=== PATIENT | female | born 1965 | race Caucasian/White ===

== ENCOUNTER 2018-07-27 13:58 | Outpatient (REF) | payer BC, SELFPAY ==
[2018-07-27 21:53] LABS: ALT 22 U/L (12-78); AST 17 U/L (15-37); Albumin 3.3 g/dL (3.4-5.0); Alkaline Phosphatase 99 U/L (46-116); Anion Gap 6.4 mmol/L (3-11); BUN 12 mg/dL (7-18); Bilirubin, Total 0.3 mg/dL (0.2-1.0); CO2 28.6 mmol/L (21.0-32.0); CREATININE 1.03 mg/dL (0.55-1.02); Calcium 8.8 mg/dL (8.5-10.1); Chloride 106 mmol/L (98-107); Cholesterol 201 mg/dL (50-200); Estimated GFR 55.84 (mL/min/1.73m2); Glucose 98 mg/dL (70-100); HDL Cholesterol 37 mg/dL (40-60); LDL CHOLESTEROL 150 mg/dL (<100); Potassium 4.2 mmol/L (3.5-5.1); Sodium 141 mmol/L (136-145); Total Protein 7.3 g/dL (6.4-8.2); Triglyceride 148 mg/dL (30-150)
[2018-07-27 22:09] LABS: COMMENT (LAB VIEW ONLY) 307.81 mg/dL; Microalb ug/mg Crea 5.9 ug/mg Cr
== END 2018-07-27 14:18 ==
LOC: NCHCN 13:58
PROVIDERS: Visit Provider Registered Nurse
DX: Z00.00 Encounter for general adult medical examination without abnormal findings (principal); I10 Essential (primary) hypertension; E66.01 Morbid (severe) obesity due to excess calories
CPT/HCPCS: 80053; 80061; 83721; 82043; 82570; 87086

== ENCOUNTER 2020-02-19 12:13 | Outpatient (REF) | payer BC, SELFPAY ==
[2020-02-19 20:08] LABS: HCT 40.2 % (36.0-46.0); HGB 12.7 g/dL (12.0-15.5); Mean Corp. HGB Concentration 31.6 g/dL (32.0-36.0); Mean Corpuscular Hemoglobin 24.9 pg (27.0-33.0); Mean Corpuscular Volume 78.8 fL (80-95); Mean Platelet Volume 11.5 fL (8.0-11.0); Platelet Count 384 x1000/uL (130-400); RBC Distribution Width 18.4 % (11.7-14.6); White Blood Cell Count 8.24 k/cumm (4.4-10.8)
[2020-02-19 20:16] LABS: ALT 30 U/L (14-59); AST 21 U/L (15-37); Albumin 3.8 g/dL (3.4-5.0); Alkaline Phosphatase 107 U/L (46-116); Anion Gap 9.2 mmol/L (3-11); BUN 17 mg/dL (7-18); Bilirubin, Total 0.4 mg/dL (0.2-1.0); CO2 28.8 mmol/L (21.0-32.0); CREATININE 0.94 mg/dL (0.55-1.02); Calcium 9.7 mg/dL (8.5-10.1); Calculated LDL 175 mg/dL (<100); Chloride 101 mmol/L (98-107); Cholesterol 258 mg/dL (<200); Glucose 107 mg/dL (74-106); HDL Cholesterol 42 mg/dL (40-60); Potassium 5.1 mmol/L (3.5-5.1); Sodium 139 mmol/L (136-145); TSH 4.74 uIU/mL (0.36-3.74); Total Protein 8.3 g/dL (6.4-8.2); Triglyceride 205 mg/dL (<150)
[2020-02-21 04:57] LABS: Vitamin D 25 Total 11.1 ng/ml (30-100)
== END 2020-02-19 12:33 ==
LOC: NCHCN 12:13
PROVIDERS: Visit Provider Registered Nurse
DX: Z00.00 Encounter for general adult medical examination without abnormal findings (principal); E78.5 Hyperlipidemia, unspecified; R53.83 Other fatigue; D50.9 Iron deficiency anemia, unspecified; E66.01 Morbid (severe) obesity due to excess calories; B35.3 Tinea pedis
CPT/HCPCS: 80053; 80061; 82306; 85027; 84443

== ENCOUNTER 2020-03-21 12:59 | Outpatient (REF) | payer BC, SELFPAY ==
[2020-03-21 21:07] LABS: TSH (W/Ref FT4) 2.58 uIU/mL (0.36-3.74)
[2020-03-24 06:30] LABS: Vitamin D 25 Total 21.4 ng/ml (30-100)
== END 2020-03-21 13:19 ==
LOC: NCHCN 12:59
PROVIDERS: Visit Provider Registered Nurse
DX: R94.6 Abnormal results of thyroid function studies (principal); E55.9 Vitamin D deficiency, unspecified
CPT/HCPCS: 82306; 84443

== ENCOUNTER 2020-04-21 10:45 | Outpatient (REF) | payer BC, SELFPAY ==
[2020-04-21 22:00] LABS: Vitamin D 25 Total 21.3 ng/ml (30-100)
== END 2020-04-21 11:05 ==
LOC: NCHCN 10:45
PROVIDERS: Visit Provider Registered Nurse
DX: E55.9 Vitamin D deficiency, unspecified (principal)
CPT/HCPCS: 82306

== ENCOUNTER 2020-06-11 21:46 | Outpatient (REF) | payer BC, SELFPAY ==
[2020-06-11 20:49] LABS: HCT 41.5 % (36.0-46.0); HGB 13.1 g/dL (11.2-15.7); MCH 25.6 pg (27.0-33.0); MCHC 31.6 % (32.0-36.0); MCV 81.2 fL (80-95); MPV 11.3 fL (8.0-11.0); Platelet Count 335 10^3/uL (130-400); RBC 5.11 10^6/uL (3.93-5.22); RDW 18.6 % (11.7-14.6); WBC 9.88 10^3/uL (4.4-10.8)
[2020-06-11 21:14] LABS: ALT 30 U/L (14-59); AST 18 U/L (15-37); Albumin 3.4 g/dL (3.4-5.0); Alkaline Phosphatase 109 U/L (46-116); Anion Gap 8.5 mmol/L (3-11); BUN 17 mg/dL (7-18); Bilirubin, Total 0.3 mg/dL (0.2-1.0); CO2 28.5 mmol/L (21.0-32.0); CREATININE 0.85 mg/dL (0.55-1.02); Calcium 9.8 mg/dL (8.5-10.1); Chloride 105 mmol/L (98-107); Glucose 97 mg/dL (74-106); Potassium 4.3 mmol/L (3.5-5.1); Sodium 142 mmol/L (136-145); TSH 3.32 uIU/mL (0.36-3.74); Total Protein 7.4 g/dL (6.4-8.2)
[2020-06-11 21:17] LABS: Hemoglobin A1C 6.4 % (3.8-5.6)
== END 2020-06-11 22:06 ==
LOC: NCHCN 21:46
PROVIDERS: Visit Provider Registered Nurse
DX: R55 Syncope and collapse (principal)
CPT/HCPCS: 80053; 85027; 83036; 83735; 84443

== ENCOUNTER 2020-08-01 14:45 | Outpatient (REF) | payer BC, SELFPAY ==
[2020-08-01 21:30] LABS: HCT 45.9 % (36.0-46.0); MCH 25.5 pg (27.0-33.0); MCHC 30.5 % (32.0-36.0); MCV 83.5 fL (80-95); MPV 12.4 fL (8.0-11.0); Platelet Count 310 10^3/uL (130-400); RDW 17.2 % (11.7-14.6); RDW-SD 51.9 fL; WBC 8.97 10^3/uL (4.4-10.8)
[2020-08-01 21:49] LABS: Iron 40 ug/dL (50-170); Total Iron Binding Capacity 455 ug/dL (250-450); Transferrin Sat 9 % (15-50)
[2020-08-01 21:58] LABS: Anion Gap 6.9 mmol/L (3-11); BUN 14 mg/dL (7-18); CO2 29.1 mmol/L (21.0-32.0); CREATININE 0.97 mg/dL (0.55-1.02); Calcium 9.5 mg/dL (8.5-10.1); Calculated LDL 68 mg/dL (<100); Chloride 105 mmol/L (98-107); Cholesterol 146 mg/dL (<200); Ferritin 10 ng/mL (8-252); Glucose 99 mg/dL (74-106); HDL Cholesterol 35 mg/dL (40-60); Potassium 3.9 mmol/L (3.5-5.1); Sodium 141 mmol/L (136-145); Triglyceride 217 mg/dL (<150)
== END 2020-08-01 15:05 ==
LOC: NCHCN 14:45
PROVIDERS: Visit Provider Registered Nurse
DX: E78.5 Hyperlipidemia, unspecified (principal); D50.9 Iron deficiency anemia, unspecified; R60.0 Localized edema
CPT/HCPCS: 80048; 80061; 85027; 82728; 83540; 83550

== ENCOUNTER 2020-08-08 13:11 | Outpatient (REF) | payer BC, SELFPAY ==
[2020-08-12 22:14] LABS: Patient Race White; SARS-CoV-2 RNA Undetected (Undetected); SARS-CoV-2 Specimen Source Nasopharynx
== END 2020-08-08 13:31 ==
LOC: NCHCN 13:11
PROVIDERS: Visit Provider Registered Nurse
DX: Z11.59 Encounter for screening for other viral diseases (principal)
CPT/HCPCS: U0003

== ENCOUNTER 2021-05-07 11:46 | Outpatient (REF) | payer BC, SELFPAY ==
--- NOTE | 2021-05-07 10:30 | PAPFT_PTH ---
PATIENT: Christal Larkin LOC: [facility] U#:[id number] AGE/SX: 55/F ROOM: RE05/07/[address]: Ila Dc : 1965 BED: DIS: 05/07/2021 SPEC #: [id number] RECD: 05/07/21 13:01 STATUS: CHINO BARAJAS #: [id number] GUERO: 05/07/21 10:[address]: Ila Dc DEPT: [facility] Cytology RECD BY: Shanon Shen ENTERED: 05/07/21 13:01 SP TYPE: PAPFT OTHR DR: Maximus Sánchez Tissues: 1 - CX/ENDOCX FOR PAP SMEARS Procedures: PAP THIN PREP/UVM Screening HPV DNA PROBE Comments: [id number]
== END 2021-05-07 11:47 | disposition home or self-care (01) ==
LOC: NCHCN 11:46
PROVIDERS: Visit Provider Registered Nurse
DX: Z00.00 Encounter for general adult medical examination without abnormal findings (principal); Z12.4 Encounter for screening for malignant neoplasm of cervix
CPT/HCPCS: 88142; 87480; 87510; 87624; 87660

== ENCOUNTER 2021-05-28 16:15 | Outpatient (REF) | payer BC, SELFPAY ==
[2021-05-28 21:20] LABS: ALT 29 U/L (14-59); AST 17 U/L (15-37); Albumin 3.3 g/dL (3.4-5.0); Alkaline Phosphatase 102 U/L (46-116); Anion Gap 7.6 mmol/L (3-11); BUN 20 mg/dL (7-18); Bilirubin, Total 0.3 mg/dL (0.2-1.0); CO2 28.4 mmol/L (21.0-32.0); CREATININE 1.1 mg/dL (0.55-1.02); Calcium 9.3 mg/dL (8.5-10.1); Chloride 103 mmol/L (98-107); Glucose 194 mg/dL (74-106); Potassium 3.6 mmol/L (3.5-5.1); Sodium 139 mmol/L (136-145); Total Protein 7.3 g/dL (6.4-8.2)
== END 2021-05-28 16:16 | disposition home or self-care (01) ==
LOC: NCHCN 16:15
PROVIDERS: Visit Provider Registered Nurse
DX: Z00.00 Encounter for general adult medical examination without abnormal findings (principal); I10 Essential (primary) hypertension; E78.5 Hyperlipidemia, unspecified; R73.03 Prediabetes
CPT/HCPCS: 80053

== ENCOUNTER 2021-08-14 16:50 | Outpatient (REF) | payer BC, SELFPAY ==
[2021-08-16 14:05] LABS: COVID-19 RT-PCR UVMMC Result Negative (Negative)
== END 2021-08-14 16:51 | disposition home or self-care (01) ==
LOC: NCHCN 16:50
PROVIDERS: Visit Provider Registered Nurse
DX: Z20.822 Contact with and (suspected) exposure to COVID-19 (principal); R06.02 Shortness of breath; R19.7 Diarrhea, unspecified
CPT/HCPCS: U0003

== ENCOUNTER 2022-03-16 18:28 | Outpatient (REF) | payer BC, SELFPAY ==
[2022-03-17 01:43] LABS: COVID-19 RT-PCR UVMMC Result Negative (Negative)
== END 2022-03-16 18:29 | disposition home or self-care (01) ==
LOC: NCHCN 18:28
PROVIDERS: Visit Provider Nurse Practitioner Family
DX: Z20.822 Contact with and (suspected) exposure to COVID-19 (principal); J06.9 Acute upper respiratory infection, unspecified
CPT/HCPCS: U0003

== ENCOUNTER 2022-10-20 16:18 | Outpatient (REF) | payer BC, SELFPAY ==
[2022-10-20 21:24] LABS: Anion Gap 5.3 mmol/L (3-11); BUN 10 mg/dL (7-18); CO2 31.7 mmol/L (21.0-32.0); CREATININE 0.8 mg/dL (0.55-1.02); Calcium 9.7 mg/dL (8.5-10.1); Chloride 103 mmol/L (98-107); Estimated GFR 84.82 (mL/min/1.73m2); Glucose 99 mg/dL (74-106); Potassium 3.8 mmol/L (3.5-5.1); Sodium 140 mmol/L (136-145)
== END 2022-10-20 16:19 | disposition home or self-care (01) ==
LOC: NCHCN 16:18
PROVIDERS: Visit Provider Registered Nurse
DX: I10 Essential (primary) hypertension (principal); E11.9 Type 2 diabetes mellitus without complications
CPT/HCPCS: 80048

== ENCOUNTER 2022-11-24 08:36 | Emergency (ER) | payer BC, SELFPAY ==
[2022-11-24 08:47] VITALS: BP 132/69; PULSE 77; RESP 18; TEMP 36.9; O2SAT 96
--- NOTE | 2022-11-24 09:00 | DI.RAD_ITS ---
Exam(s) XR LUMBAR SPINE COMPLETE EXAM: XR LUMBAR SPINE COMPLETE CLINICAL HISTORY: lower back pain. TECHNIQUE: 2D digital imaging was performed. Five views. COMPARISON: CR LUMBAR SPINE COMPLETE from 07/02/2010 FINDINGS: No evidence of compression fracture. Degenerative disc changes noted a T12-L1. Facet degenerative c hanges greatest at L5-S1. SI joints unremarkable. No spondylolysis or spondylolisthesis. Calcifica tion in the abdominal aorta. IMPRESSION: No acute abnormality. DATA REPOSITORY: RADIATION DOSE DELIVERED:
--- NOTE | 2022-11-24 09:00 | DI.RAD_ITS ---
Exam(s) XR HIP RT COMPLETE AP PELVIS EXAM: XR HIP RT COMPLETE AP PELVIS INDICATION: pain. COMPARISON: No exams were available for comparison TECHNIQUE: 2D digital imaging was performed. Three views. FINDINGS: No fracture or dislocation. Mild bilateral acetabular spurring. Mild degenerative changes of the SI joints. IMPRESSION: No acute abnormality. DATA REPOSITORY: RADIATION DOSE DELIVERED:
--- NOTE | 2022-11-24 09:04 | ED.GENADUL_ITS ---
Discharge Plan Disposition Patient Disposition: Home Condition: Stable Discharge Details Clinical Impression: Lumbar back pain, Hip pain, right Primary Care Provider: Maximus Sánchez ED Provider: Mack Tyson Home Meds and New Rx's Prescriptions: New cyclobenzaprine 10 mg tablet 10 mg PO TID PRNQty: 20 0RF prednisone 20 mg tablet 60 mg PO DAILY 5 Days Qty: 15 0RF Continued hydrochlorothiazide 25 mg Tablet 25 mg PO DAILY metformin 500 mg Tablet 500 mg PO DAILY ferrous sulfate 220 mg/5 mL Elixir 440 mg PO ropinirole 0.25 mg Tablet 0.25 mg PO HS cholecalciferol (vitamin D3) 25 mcg (1,000 unit) Capsule 25 mcg PO DAILY Discharge Instructions Instructions: Acute Low Back Pain (ED) Additional Instructions: Follow up with your primary care provider within 1-2 weeks if you feel more ill, have severe worsening pain or fevers return to the emergency department Medical Decision Making 57 yo female with hx of htn, dm, who comes in with cc of right lower back pain for 3 days. She denies having chronic issues with her back, no prior surgeries.She denies any trauma or falls. She localizes the pain to the right lower back and is tender in this area. She has erythema, warmth, stepoffs. She also has tenderness to the posterior right hip. She is able to bear weight and walk though with pain. She has intact sensation distally with no leg swelling and normal periphreal pulses. She has no saddle anesthesia and normal reflexes. No findings on history or exam to suggest cauda equina or spinal epidural abscess or osteomyelitis. Susect disc herniation, sciatica or muscle spasm. Will treat with toradol, flexeril, lidocaine patch and obtain xrays of the lumbar spine and right hip and reassess. pt's xrays unremarkable, she feels better and still has no concerning findings on exam, no saddle anesthesia. Suspect musculoskeletal pain vs disc herniation, will have her f/u with her pcp, return precautions given Differential Diagnosis Differential Diagnosis: sciatica, bursitis, disc herniation Imaging Data Radiologic Study: Attestation: I personally reviewed and interpreted this imaging study as follows: Imaging: X-Ray Radiologist's impression: no acute findings hip xray Radiologic Study #2: Attestation: I personally reviewed and interpreted this imaging study as follows: Imaging: X-Ray Radiologist's impression: no acute findings lumbar xray Lab Data Lab results reviewed: Yes I reviewed the patient's lab results. HPI General Mode of arrival: ambulatory . Date/Time Provider Initiated Documentation: 11/24/22 08:36 . Limitations to Documentation: no limitations . Information obtained by: patient . History of Present Illness 57 year old F presents to the emergency department with the chief complaint of right lower back pain, described as moderate, Quality is described as sharp, Patient reports no radiation. Patient started experiencing this day(s) (3) and it has been constant. No relieving factors improve symptom(s), No exacerbating factors reported . Patient notes no other symptoms.; denies chest pain, fever/chills and nausea/vomiting. Patient did receive the following treatments prior to arrival, none Related Data Home Medications Medication Instructions Recorded Confirmed cholecalciferol (vitamin D3) 25 25 mcg PO DAILY 11/24/22 11/24/22 mcg (1,000 unit) capsule cyclobenzaprine 10 mg tablet 10 mg PO TID PRN #20 tabs 11/24/22 ferrous sulfate 220 mg/5 mL oral 440 mg PO 11/24/22 elixir hydrochlorothiazide 25 mg tablet 25 mg PO DAILY 11/24/22 11/24/22 metformin 500 mg tablet 500 mg PO DAILY 11/24/22 11/24/22 prednisone 20 mg tablet 60 mg PO DAILY 5 days #15 tabs 11/24/22 ropinirole 0.25 mg tablet 0.25 mg PO HS 11/24/22 11/24/22 Previous Rx's Medication Instructions Recorded cyclobenzaprine 10 mg tablet 10 mg PO TID PRN #20 tabs 11/24/22 prednisone 20 mg tablet 60 mg PO DAILY 5 days #15 tabs 11/24/22 Allergies Allergy/AdvReac Type Severity Reaction Status Date / Time DAVIDA Inhibitors AdvReac Severe Swelling/Ed Unverified 11/24/22 08:50 rose methocarbamol AdvReac Intermediate Nausea Unverified 11/24/22 08:50 General Stated Complaint: Orthopedic GELACIO: 4 Review of Systems All systems reviewed & are unremarkable except as noted in HPI and below Constitutional Constitutional: Denies chills, Denies fever(s) and Denies weakness Cardiovascular Cardiovascular: Denies chest pain and Denies dyspnea Respiratory Respiratory: Denies cough and Denies dyspnea Gastrointestinal Gastrointestinal: Denies abdominal pain, Denies nausea and Denies vomiting Integumentary/Breasts Skin/Breast: Denies rash Neurologic Neurologic: Denies weakness PFSH All Active Problems (Updated 11/24/22 @ 10:54 by Mack Tyson MD) Lumbar back pain (Acute) Hip pain, right (Acute) Social History Smoking/Tobacco Use Status: Current every day Tobacco Type: cigarettes Smoking risk assessment performed?: Yes Alcohol Intake: never Drug use: Never Substance use type: does not use Do you feel safe at home: Yes Do you feel safe in your relationship?: Yes Exam Const General: no acute distress Orientation: alert HENMT Head: normal to inspection Ears: external ears normal General nose exam: external nose normal Mouth: moist mucous membranes Eyes General: appearance normal, both eyes and all related structures Neck Neck: normal visual inspection Resp Effort & Inspection: normal respiratory effort and able to speak in complete sentences Cardio Jugular venous pressure: no JVD Rate: regular rate GI Palpation: soft and nontender Back/Spine/Pelvis Back: no CVA tenderness, No erythema, No warmth, No sacral edema, No ecchymosis and back tenderness Skin General skin exam: no rashes or lesions noted Neuro General: patient alert and patient oriented x3 Extrem General: normal to inspection Psych Mental Status: mental status grossly normal Course Vital Signs Vital signs: Vital Signs Temperature 36.9 C 11/24/22 08:47 Pulse 77 11/24/22 08:47 Respiratory Rate 18 11/24/22 08:47 Blood Pressure 132/69 11/24/22 08:47 Pulse Oximetry 96 11/24/22 08:47 Temperature 36.9 C 11/24/22 08:47 Pulse 77 11/24/22 08:47 Respiratory Rate 18 11/24/22 08:47 Respiratory Effort 11/24/22 08:54 Blood Pressure 132/69 11/24/22 08:47 Blood Pressure Position Sitting 11/24/22 08:47 Pulse Oximetry 96 11/24/22 08:47 Oxygen Delivery Method Room Air 11/24/22 08:47 Oxygen Flow Rate 0 11/24/22 08:47 Pain Level 8 11/24/22 08:55
[2022-11-24] MEDS: Lidocaine 5% Patch 1 PATCH TP (09:13)
[2022-11-24] MEDS: Cyclobenzaprine 10 MG TAB PO (09:13)
[2022-11-24] MEDS: Ketorolac 15 MG/ML VIAL IM (09:13)
[2022-11-24 11:05] VITALS: BP 135/60; PULSE 65; RESP 20; TEMP 36.1; O2SAT 97
== END 2022-11-24 11:07 | disposition home or self-care (01) ==
PROVIDERS: Emergency Provider Emergency Medicine
DX: M54.50 Low back pain, unspecified (principal); M25.551 Pain in right hip; I10 Essential (primary) hypertension; E11.9 Type 2 diabetes mellitus without complications; Z79.84 Long term (current) use of oral hypoglycemic drugs
CPT/HCPCS: 96372; 99284; 72110; 73502; J1885

== ENCOUNTER 2023-02-09 15:09 | Outpatient (REF) | payer BC, SELFPAY ==
[2023-02-09 21:49] LABS: HGB 11.6 g/dL (11.2-15.7); MCH 22.3 pg (27.0-33.0); MCV 77 fL (80-95); MPV 10.3 fL (8.0-11.0); Platelet Count 464 10^3/uL (130-400); RDW 18.4 % (11.7-14.6); WBC 11.22 10^3/uL (4.4-10.8)
[2023-02-09 22:12] LABS: COMMENT (LAB VIEW ONLY) 158.01 mg/dL; Microalb ug/mg Crea 5.7 ug/mg Cr
[2023-02-09 22:17] LABS: TSH (W/Ref FT4) 4.44 uIU/mL (0.36-3.74)
[2023-02-09 22:47] LABS: FREE T4 0.96 ng/dL (0.76-1.46)
== END 2023-02-09 15:10 | disposition home or self-care (01) ==
LOC: NCHCN 15:09
PROVIDERS: Visit Provider Registered Nurse
DX: R53.83 Other fatigue (principal); E11.9 Type 2 diabetes mellitus without complications
CPT/HCPCS: 85027; 82043; 82570; 84439; 84443

== ENCOUNTER 2023-02-15 10:48 | Outpatient (REF) | payer BC, SELFPAY ==
--- OUTSIDE RECORDS SUMMARY | 2023-02-15 10:51 | XMS_ITS | CCD ---
Author Name Unknown Address [address] [place] [address] [id number] Organization Unknown Address [address] [place] [address] [id number] Care Team Providers Care As400 Operator Name Role Phone POLO ALTMAN Attending Physician [phone] Vital Signs Unknown or Not Available. Allergies Allergy Code Allergy Type Reaction Status ADHESIVE BLISTERS {Clinical monitoring unavailable} 0 Allergy to substance Act grazyna MENTHECARBOL VOMITING {Clinical monitoring unavailable} 0 Drug allergy Active METHOCARBAMOL 6845 Drug allergy Active DAVIDA INHIBITORS 0 Drug allergy FACIAL SWELLI NG AND BRONCHIAL SWELLING Active Procedures Unknown or Not Available. History of Immunizations Unknown or Not Available. Problems Unknown or Not Available. Results Unknown or Not Available. Active Medications Unknown or Not Available. Medications Administered During Visit Unknown or Not Available. Encounters Unknown or Not Available. Social History Smoking Status Code Start Date End Date Never smoker [id number] Patient Decision Aids Unknown or Not Available. Discharge Instructions You were admitted to [facility] on 02/09/2023 23:37 You were discharged from [facility] on 02/09/2023 23:37 Should you have any questions prior to discharge, please contact a member of your healthcare team. If you have left the hospital and have any questions, please contact your primary care physician. Chief Complaint and Reason For Visit Unknown or Not Available. Function Status Unknown or Not Available. Plan of Care Unknown or Not Available. Referral/Transition of Care Unknown or Not Available.
--- OUTSIDE RECORDS SUMMARY | 2023-02-15 10:51 | XMS_ITS | CCD ---
Author Name Unknown Address [address] [place] [address] [id number] Organization Unknown Address [address] [place] [address] [phone] Care Team Providers Care Investigative Research Specialist Name Role Phone POLO ALTMAN Attending Physician [phone] POLO ALTMAN Rounding (Secondary) Physician [phone] Vital Signs Unknown or Not Available. Allergies [...] Code Start Date End Date Never smoker [id number] Patient Decision Aids Unknown or Not Available. Discharge Instructions You were admitted to [facility] on 02/09/2023 09:16 You were discharged from [facility] on 02/09/2023 09:16 Should you have any questions prior to [...]
[2023-02-15 17:07] LABS: Iron 27 ug/dL (50-170); Total Iron Binding Capacity 500 ug/dL (250-450)
[2023-02-15 17:23] LABS: Ferritin 11 ng/mL (8-252)
[2023-02-15 17:31] LABS: Vitamin D 25 Total 19.9 ng/mL (30-100)
== END 2023-02-15 10:49 | disposition home or self-care (01) ==
LOC: NCHCN 10:48
PROVIDERS: Visit Provider Registered Nurse
DX: R53.83 Other fatigue (principal); E03.9 Hypothyroidism, unspecified; E55.9 Vitamin D deficiency, unspecified; D50.9 Iron deficiency anemia, unspecified
CPT/HCPCS: 82306; 82728; 83540; 83550

== ENCOUNTER 2023-03-30 22:27 | Outpatient (REF) | payer BC, SELFPAY | END 2023-03-30 22:28 | disposition home or self-care (01) | LOC: LBN 22:27 | PROVIDERS: Visit Provider Physician Assistant Medical | DX: N61.1 Abscess of the breast and nipple (principal) | CPT/HCPCS: 87070; 87205 ==

== ENCOUNTER 2023-11-02 11:41 | Outpatient (REF) | payer BC, SELFPAY ==
[2023-11-02 20:59] LABS: HCT 37.9 % (36.0-46.0); HGB 10.5 g/dL (11.2-15.7); MCH 19.5 pg (27.0-33.0); MCHC 27.7 % (32.0-36.0); MCV 70 fL (80-95); MPV 9.5 fL (8.0-11.0); Platelet Count 462 10^3/uL (130-400); RBC 5.39 10^6/uL (3.93-5.22); RDW-SD 51.2 fL; WBC 9.27 10^3/uL (4.4-10.8)
[2023-11-02 21:09] LABS: Iron 21 ug/dL (50-170); Total Iron Binding Capacity 504 ug/dL (250-450); Transferrin Sat 4 % (15-50)
[2023-11-02 21:19] LABS: Anion Gap 7.7 mmol/L (3-11); BUN 13 mg/dL (7-18); CO2 29.3 mmol/L (21.0-32.0); Calcium 9.7 mg/dL (8.5-10.1); Calculated LDL 129 mg/dL (<100); Chloride 101 mmol/L (98-107); Cholesterol 213 mg/dL (<200); Estimated GFR 64.49 (mL/min/1.73m2); Glucose 137 mg/dL (74-106); HDL Cholesterol 39 mg/dL (40-60); Potassium 3.2 mmol/L (3.5-5.1); Sodium 138 mmol/L (136-145); TSH 2.73 uIU/mL (0.36-3.74); Triglyceride 225 mg/dL (<150)
[2023-11-02 21:27] LABS: RDW 21.3 % (11.7-14.6)
== END 2023-11-02 11:42 | disposition home or self-care (01) ==
LOC: NCHCN 11:41
PROVIDERS: Visit Provider Family Medicine
DX: I10 Essential (primary) hypertension (principal); E78.5 Hyperlipidemia, unspecified; D50.9 Iron deficiency anemia, unspecified
CPT/HCPCS: 80048; 80061; 85027; 83540; 83550; 84443

== ENCOUNTER 2024-01-26 19:45 | Outpatient (REF) | payer BC, SELFPAY ==
[2024-01-26 21:18] LABS: HCT 34.9 % (36.0-46.0); HGB 9.7 g/dL (11.2-15.7); MCH 19.4 pg (27.0-33.0); MCHC 27.8 % (32.0-36.0); MPV 9.8 fL (8.0-11.0); Platelet Count 293 10^3/uL (130-400); RDW-SD 51.1 fL; WBC 8.77 10^3/uL (4.4-10.8)
[2024-01-26 21:45] LABS: RDW 21.2 % (11.7-14.6)
[2024-01-26 21:48] LABS: MCV 70 fL (80-95)
[2024-01-26 22:04] LABS: ALT 22 U/L (14-59); AST 16 U/L (15-37); Albumin 3.1 g/dL (3.4-5.0); Alkaline Phosphatase 108 U/L (46-116); Anion Gap 11.7 mmol/L (3-11); BUN 17 mg/dL (7-18); Bilirubin, Total 0.3 mg/dL (0.2-1.0); CO2 25.3 mmol/L (21.0-32.0); Calcium 9.5 mg/dL (8.5-10.1); Calculated LDL 80 mg/dL (<100); Chloride 103 mmol/L (98-107); Cholesterol 144 mg/dL (<200); Estimated GFR 64.49 (mL/min/1.73m2); Glucose 156 mg/dL (74-106); HDL Cholesterol 39 mg/dL (40-60); Potassium 3.6 mmol/L (3.5-5.1); Sodium 140 mmol/L (136-145); TSH (W/Ref FT4) 2.89 uIU/mL (0.36-3.74); Total Protein 7.5 g/dL (6.4-8.2); Triglyceride 127 mg/dL (<150)
[2024-01-26 22:05] LABS: Hemoglobin A1C 6.5 % (<5.7)
== END 2024-01-26 19:46 | disposition home or self-care (01) ==
LOC: NCHCN 19:45
PROVIDERS: Visit Provider Family Medicine
DX: E11.9 Type 2 diabetes mellitus without complications (principal); E78.5 Hyperlipidemia, unspecified; E66.9 Obesity, unspecified; E02 Subclinical iodine-deficiency hypothyroidism
CPT/HCPCS: 80053; 80061; 85027; 83036; 84443

== ENCOUNTER 2024-02-14 15:20 | Outpatient (REF) | payer BC, SELFPAY ==
[2024-02-14 15:12] LABS: Iron 16 ug/dL (50-170); Total Iron Binding Capacity 463 ug/dL (250-450); Transferrin Sat 3 % (15-50)
[2024-02-14 16:18] LABS: Ferritin 9 ng/mL (8-252)
== END 2024-02-14 15:21 | disposition home or self-care (01) ==
LOC: NCHCN 15:20
PROVIDERS: PCP Family Medicine; Visit Provider Family Medicine
DX: D50.9 Iron deficiency anemia, unspecified (principal)
CPT/HCPCS: 82728; 83540; 83550

== ENCOUNTER 2024-04-30 15:30 | Outpatient (REF) | payer MEDICAID, SELFPAY ==
[2024-04-30 16:38] LABS: COMMENT (LAB VIEW ONLY) 113.39 mg/dL; Microalb ug/mg Crea 4.6 ug/mg Cr
== END 2024-04-30 15:31 | disposition home or self-care (01) ==
LOC: NCHCN 15:30
PROVIDERS: PCP Family Medicine; Visit Provider Family Medicine
DX: E11.9 Type 2 diabetes mellitus without complications (principal)
CPT/HCPCS: 82043; 82570

== ENCOUNTER 2024-05-29 18:31 | Outpatient (REF) | payer MEDICAID, SELFPAY ==
[2024-05-29 17:59] LABS: HCT 35.6 % (36.0-46.0); HGB 9.9 g/dL (11.2-15.7); MCH 19.8 pg (27.0-33.0); MPV 9.4 fL (8.0-11.0); Platelet Count 497 10^3/uL (130-400); RDW-SD 51.6 fL; WBC 8.51 10^3/uL (4.4-10.8)
[2024-05-29 18:19] LABS: Ferritin 9 ng/mL (8-252)
[2024-05-29 18:39] LABS: Iron 19 ug/dL (50-170); Total Iron Binding Capacity 509 ug/dL (250-450); Transferrin Sat 4 % (15-50)
[2024-05-29 19:15] LABS: MCV 71 fL (80-95)
[2024-05-29 19:16] LABS: MCHC 27.8 % (32.0-36.0); RDW 20.5 % (11.7-14.6)
== END 2024-05-29 18:32 | disposition home or self-care (01) ==
LOC: NCHCN 18:31
PROVIDERS: PCP Family Medicine; Visit Provider Family Medicine
DX: D50.9 Iron deficiency anemia, unspecified (principal)
CPT/HCPCS: 85027; 82728; 83540; 83550

== ENCOUNTER 2024-06-07 11:31 | Outpatient (REF) | payer MEDICAID, SELFPAY | END 2024-06-07 11:32 | disposition home or self-care (01) | LOC: NCHCN 11:31 | PROVIDERS: PCP Family Medicine; Visit Provider Nurse Practitioner Family | DX: L98.8 Other specified disorders of the skin and subcutaneous tissue (principal); S81.802A Unspecified open wound, left lower leg, initial encounter | CPT/HCPCS: 87070; 87205 ==

== ENCOUNTER 2024-06-29 16:41 | Outpatient (REF) | payer MEDICAID, SELFPAY ==
[2024-06-29 21:15] LABS: Iron 68 ug/dL (50-170); Total Iron Binding Capacity 369 ug/dL (250-450); Transferrin Sat 18 % (15-50)
[2024-06-29 21:32] LABS: HCT 44.6 % (36.0-46.0); MCH 23.6 pg (27.0-33.0); MCHC 29.1 % (32.0-36.0); MCV 81 fL (80-95); MPV 10.5 fL (8.0-11.0); Platelet Count 352 10^3/uL (130-400); RBC 5.51 10^6/uL (3.93-5.22); WBC 7.88 10^3/uL (4.4-10.8)
== END 2024-06-29 16:42 | disposition home or self-care (01) ==
LOC: NCHCN 16:41
PROVIDERS: PCP Family Medicine; Visit Provider Family Medicine
DX: D50.9 Iron deficiency anemia, unspecified (principal)
CPT/HCPCS: 85027; 83540; 83550

== ENCOUNTER 2025-01-08 16:53 | Outpatient (REF) | payer MEDICAID, SELFPAY ==
[2025-01-08 21:45] LABS: Vitamin D 25 Total 23.4 ng/mL (30-100)
[2025-01-08 21:55] LABS: Hemoglobin A1C 6.3 % (<5.7)
== END 2025-01-08 16:54 | disposition home or self-care (01) ==
LOC: NCHCN 16:53
PROVIDERS: PCP Family Medicine; Visit Provider Family Medicine
DX: E55.9 Vitamin D deficiency, unspecified (principal); E11.9 Type 2 diabetes mellitus without complications
CPT/HCPCS: 82306; 83036

== ENCOUNTER 2025-09-12 17:17 | Outpatient (REF) | payer MEDICAID, SELFPAY ==
[2025-09-12 20:48] LABS: Abs Immature Grans 0.04 10^3/uL (0.0-0.06); HCT 41.7 % (36.0-46.0); HGB 12.5 g/dL (11.2-15.7); Immature Grans % 0.4 %; MCH 24.7 pg (27.0-33.0); MCHC 30.0 % (32.0-36.0); MCV 82 fL (80-95); MPV 10.5 fL (8.0-11.0); Platelet Count 404 10^3/uL (130-400); RBC 5.06 10^6/uL (3.93-5.22); RDW 15.7 % (11.7-14.6); RDW-SD 46.6 fL; WBC 8.99 10^3/uL (4.4-10.8)
[2025-09-12 21:28] LABS: ALT 18 U/L (14-59); AST 15 U/L (15-37); Albumin 3.3 g/dL (3.4-5.0); Alkaline Phosphatase 116 U/L (46-116); Anion Gap 8.0 mmol/L (3-11); BUN 17 mg/dL (7-18); Bilirubin, Total 0.4 mg/dL (0.2-1.0); CO2 28.0 mmol/L (21.0-32.0); Calcium 9.4 mg/dL (8.5-10.1); Chloride 103 mmol/L (98-107); Cholesterol 241 mg/dL (<200); Glucose 100 mg/dL (74-106); HDL Cholesterol 37 mg/dL (>or=50); Potassium 4.3 mmol/L (3.5-5.1); Sodium 139 mmol/L (136-145); Total Protein 8.0 g/dL (6.4-8.2); Vitamin D 25 Total 26 ng/mL (30-100)
== END 2025-09-12 17:18 | disposition home or self-care (01) ==
LOC: NCHCN 17:17
PROVIDERS: PCP Family Medicine; Visit Provider Family Medicine
DX: E55.9 Vitamin D deficiency, unspecified (principal); E78.5 Hyperlipidemia, unspecified; R53.83 Other fatigue; I10 Essential (primary) hypertension
CPT/HCPCS: 80053; 80061; 82306; 85025

== ENCOUNTER 2025-11-11 13:09 | Observation (INO) | payer MEDICAID, SELFPAY ==
[2025-11-11] VITALS (75 sets, daily range): BP systolic 109–193; BP diastolic 33–95; PULSE 49–79; RESP 11–28; TEMP 36.4–36.6; O2SAT 92–98
--- NOTE | 2025-11-11 13:15 | RT.EKG_ITS ---
APPROVED REPORT Exam: Resting ECG Reason for Exam: weakness Patient Location: E HR:61 bpm ECG Measurements Heart Rate 61 AXIS NC 156 P 57 QRSd 155 QRS 49 QT 453 T 20 QTc 459 Conclusion Sinus rhythm, rate 61 RBBB, otherwise no interval abnormalities No STEMI No priors for comparison
--- NOTE | 2025-11-11 13:30 | DI.CT_ITS ---
Exam(s) CT HEAD WO EXAM: CT HEAD WO CLINICAL HISTORY: Headache. TECHNIQUE: Imaging Protocol: Axial computed tomography images with coronal and sagittal reformatted images were created and reviewed COMPARISON: No exams were available for comparison FINDINGS: There are no skull fractures. However, there is mucosal thickening and fluid in both maxillary sinuses as well as in the left side of the sphenoid sinus and multiple ethmoidal air cells. The frontal sinuses are clear. There is no evidence of intracranial hemorrhage, mass effect, or shift of midline structures. There are no extra-axial fluid collections. The ventricles are not enlarged or shifted and there is no blood within the ventricular system nor within the basal cisterns. There is mild periventricular hypodensity consistent with chronic small vessel disease. Mild-moderate symmetrical bifrontal atrophy is noted. IMPRESSION: Mild-moderate symmetrical bifrontal atrophy. No acute intracranial findings. There is sinusitis involving both maxillary sinuses as well as the sphenoid sinuses and ethmoidal air cells. The frontal sinuses are well aerated. Called by myself to ER provider 11/11/2025 at 2:30 p.m. RADIATION DOSE DELIVERED: 850.02mGy.cm Total DLP DATA REPOSITORY: All CT scans at this facility are submitted to the National Radiology Data Registry (NRDR) Dose Index Registry (DIR) with the [employer] (ACR). RADIATION OPTIMIZATION: All CT scans at this facility use at least one of these dose optimization techniques: automated exposure control; mA and/or kV adjustment per patient size (includes targeted exams where dose is matched to clinical indication); or iterative reconstruction.
--- NOTE | 2025-11-11 13:39 | W.ED.GENAD ---
Discharge Plan Discharge Details Chief Complaint: Headache Primary Care Provider: Jessica Elizabeth ED Provider: Lenora Evans Home Meds and New Rx's Prescriptions: No Action hydrochlorothiazide 25 mg Tablet 25 mg PO DAILY metformin 500 mg Tablet 500 mg PO DAILY ferrous sulfate 220 mg/5 mL Elixir 440 mg PO DAILY ropinirole 0.25 mg Tablet 0.25 mg PO HS cholecalciferol (vitamin D3) 25 mcg (1,000 unit) Capsule 25 mcg PO DAILY cyclobenzaprine 10 mg tablet 10 mg PO TID PRNQty: 20 0RF atorvastatin 80 mg Tablet 80 mg PO HS sumatriptan succinate [Imitrex] 100 mg Tablet 100 mg PO PRN PRN diltiazem HCl [DILT-XR] 120 mg Capsule,Ext.Rel 24h Degradable 120 mg PO DAILY omeprazole 20 mg Capsule,Delayed Release(Dr/Ec) 20 mg PO DAILY albuterol sulfate [ProAir HFA] 90 mcg/actuation Hfa Aerosol Inhaler 2 puff INHALATION Q4H PRN Qvar RediHaler 80 mcg/actuation Hfa Aerosol Breath Activated 2 inh INHALATION BID HPI General Mode of arrival: EMS. Date/Time Provider Initiated Documentation: 11/11/25 13:20. Limitations to Documentation: no limitations. Information obtained by: patient, EMS, RN notes reviewed and old records reviewed. HPI Narrative: 60-year-old female with a history of migraines presents to the ER with a chief complaint of left-sided headache for the last 3 days. Patient states that she has been feeling sick with a stomach bug over the last few days and having a headache. She has been taking sumatriptan twice a day for the last couple of days with little to no relief. Denies any head injuries. Reports feeling some left-sided weakness earlier prior to arrival which has resolved upon arrival. She is alert and oriented x 4. She did take 2-1/2 extra strength Tylenol prior to arrival. Denies any chest pain. Denies any fever. Related Data Home Medications ?Medication ?Instructions ?Recorded ?Confirmed albuterol sulfate 90 mcg/actuation 2 puff inhalation Q4H PRN 11/24/22 11/24/22 aerosol inhaler (ProAir HFA) atorvastatin 80 mg tablet 80 mg PO HS 11/24/22 11/24/22 beclomethasone dipropionate 80 2 inh inhalation BID 11/24/22 11/24/22 mcg/actuation HFA breath activated aerosol (Qvar RediHaler) cholecalciferol (vitamin D3) 25 25 mcg PO DAILY 11/24/22 11/24/22 mcg (1,000 unit) capsule cyclobenzaprine 10 mg tablet 10 mg PO TID PRN #20 tabs 11/24/22 diltiazem HCl 120 mg 120 mg PO DAILY 11/24/22 11/24/22 capsule,extended release 24 hr, controlled (DILT-XR) ferrous sulfate 220 mg/5 mL oral 440 mg PO DAILY 11/24/22 11/24/22 elixir hydrochlorothiazide 25 mg tablet 25 mg PO DAILY 11/24/22 11/24/22 metformin 500 mg tablet 500 mg PO DAILY 11/24/22 11/24/22 omeprazole 20 mg capsule,delayed 20 mg PO DAILY 11/24/22 11/24/22 release ropinirole 0.25 mg tablet 0.25 mg PO HS 11/24/22 11/24/22 sumatriptan succinate 100 mg 100 mg PO PRN PRN 11/24/22 11/24/22 tablet (Imitrex) Previous Rx's ?Medication ?Instructions ?Recorded cyclobenzaprine 10 mg tablet 10 mg PO TID PRN #20 tabs 11/24/22 Allergies Allergy/AdvReac Type Severity Reaction Status Date / Time DAVIDA Inhibitors AdvReac Severe Swelling/Ed Unverified 11/24/22 08:50 rose methocarbamol AdvReac Intermediate Nausea Unverified 11/24/22 08:50 General Stated Complaint: Headache GELACIO: 3 Review of Systems Constitutional Constitutional: Reports as per HPI and Reports headache(s) ENT Ears, Nose, Mouth, and Throat: Reports headache(s) Gastrointestinal Gastrointestinal: Reports nausea and Reports vomiting Neurologic Neurologic: Reports headache(s) Exam Narrative Exam Narrative: Constitutional: Alert and oriented x3. Appears stated age. Obese body habitus. Head: Normocephalic, no trauma. Eyes: Pupils PERRL, Red reflex noted, EOM's intact. Eyelids symmetrical without lesions, discharge, or swelling. ENT: Bilateral TM's WNL, External ear normal to inspection, no mastoid TTP, swelling, or erythema, Nasal turbinates WNL, no nasal discharge. Normal dentition, Posterior pharynx WNL, no exudate. Chest: RRR, Normal S1, S2, distal pulses intact. Resp: Lungs clear to auscultation bilaterally, no wheezes, rales, or rhonchi. Abdomen: Soft, non-distended, Normoactive bowel sounds all 4 quads. Musculoskeletal: Normal gait, Moves all 4 extremities without difficulty. Skin: No suspicious rashes or lesions. Capillary refill less than 2 sec. Neurologic: Cranial nerves II-XII intact. Alert and oriented x 3. Motor: No deficits noted. Sensory: Intact bilaterally all 4 extremities. Hematologic/Lymphatic: No ecchymosis, no lymphadenopathy. Course Vital Signs Vital signs: Vital Signs Temperature 36.4 C 11/11/25 13:12 Pulse 62 11/11/25 13:12 Respiratory Rate 20 11/11/25 13:12 Blood Pressure 159/58 H 11/11/25 13:12 Pulse Oximetry 98 11/11/25 13:12 Temperature 36.4 C 11/11/25 13:19 Temperature Source Oral 11/11/25 13:19 Pulse 62 11/11/25 13:19 Respiratory Rate 20 11/11/25 13:19 Blood Pressure 159/58 H 11/11/25 13:19 Blood Pressure Position Supine 11/11/25 13:19 Pulse Oximetry 98 11/11/25 13:19 Oxygen Delivery Method Room Air 11/11/25 13:19 Oxygen Flow Rate 0 11/11/25 13:19 Pain Level 8 11/11/25 13:19 Medical Decision Making 60-year-old female with a history of migraines presents to the ER with a chief complaint of left-sided headache for the last 3 days. Patient states that she has been feeling sick with a stomach bug over the last few days and having a headache. She has been taking sumatriptan twice a day for the last couple of days with little to no relief. Denies any head injuries. Reports feeling some left-sided weakness earlier prior to arrival which has resolved upon arrival. She is alert and oriented x 4. She did take 2-1/2 extra strength Tylenol prior to arrival. Denies any chest pain. Denies any fever. Workup ordered including CBC CMP serial troponins, Fluvid, urinalysis head CT 5-hour cc normal saline, Compazine and Benadryl. Differential diagnose include nominative to CVA, TIA, influenza, electrolyte abnormality, migraine. Initial troponin is elevated at 131, will give 324 mg of chewable aspirin. CT head shows bilateral frontal atrophy and bilateral sinusitis which could be explaining her headache. On patient reevaluation she reports that her headache is getting better, I did discuss her elevated troponin with her and possible admission she verbalized understanding and is in agreement with the plan. She continues to be chest pain-free at this time. No focal neurodeficits. Care is to be handed off to oncoming provider D[facility] pending serial troponin and disposition and possible admission. This text was generated using [employer] dictation system, please disregard any oddities of phrase or misspellings. Medical Records Medical records reviewed: Yes I reviewed the patient's medical records. Lab Data Lab results reviewed: Yes I reviewed the patient's lab results. Labs: Laboratory Tests Range/Units 11/11/25 11/11/25 11/11/25 13:37 14:26 14:40 WBC (4.4-10.8) 10^3/uL 11.18 H RBC (3.93-5.22) 10^6/uL 5.06 Hgb (11.2-15.7) g/dL 11.4 Hct (36.0-46.0) % 38.1 MCV (80-95) fL 75 L MCH (27.0-33.0) pg 22.5 L MCHC (32.0-36.0) % 29.9 L RDW (11.7-14.6) % 16.6 H Plt Count (130-400) 10^3/uL 432 H MPV (8.0-11.0) fL 9.3 Immature Gran % % 0.6 Neutrophils % % 66.4 Lymphocytes % % 15.9 Monocytes % % 11.9 Eosinophils % % 4.0 Basophils % % 1.2 Nucleated RBC % (0.0-0.3) % 0.0 Absolute Neutrophils (1.2-6.7) 10^3/uL 7.42 H Absolute Lymphocytes (1.2-3.4) 10^3/uL 1.78 Absolute Monocytes (0.1-0.8) 10^3/uL 1.33 H Absolute Eosinophils (0.0-0.7) 10^3/uL 0.45 Absolute Basophils (0.0-0.2) 10^3/uL 0.13 Sodium (136-145) mmol/L 139 Potassium (3.5-5.1) mmol/L 3.7 Chloride (98-107) mmol/L 107 Carbon Dioxide (20.0-31.0) mmol/L 25.9 Anion Gap (3-11) mmol/L 6.1 BUN (9-23) mg/dL 15 Creatinine (0.55-1.02) mg/dL 0.76 Est GFR (CKD-EPI 2020) (mL/min/1.73m2) 77.05 Glucose (74-106) mg/dL 106 Calcium (8.3-10.6) mg/dL 9.4 Magnesium (1.6-2.6) mg/dL 2.2 Total Bilirubin (0.2-1.2) mg/dL 0.2 AST (<34) U/L 15 ALT (10-49) U/L 13 Alkaline Phosphatase (46-116) U/L 120 H Troponin I (<35) ng/L 131 H* Total Protein (5.7-8.2) g/dL 8.2 Albumin (3.2-5.0) g/dL 4.4 Urine Color (Yellow) Yellow Urine Clarity (Clear) Clear Urine pH (5-8) 5.5 Ur Specific Sutton (1.005-1.025) 1.010 Urine Protein (Neg-Trace) mg/dL Negative Urine Ketones (Negative) mg/dL Negative Urine Blood (Negative) Negative Urine Nitrite (Negative) Negative Urine Bilirubin (Negative) Negative Urine Urobilinogen (Up to 0.2) mg/dL 0.2 Ur Leukocyte Esterase (Negative) Negative Urine Glucose (Negative) mg/dL Negative COVID-19 Source Nasopharynx SARS-CoV-2 (PCR) (Negative) Negative Influenza Type A (PCR) (Negative) Negative Influenza Type B (PCR) (Negative) Negative RSV (PCR) (Negative) Negative [facility] Social History Smoking/Tobacco Use Status: Current every day Tobacco Type: cigarettes Years smoked: 35 Smoking risk assessment performed?: Yes Alcohol Intake: never Drug use: Never Substance use type: does not use Do you feel safe at home: Yes Do you feel safe in your relationship?: Yes
[2025-11-11 13:55] LABS: Abs Immature Grans 0.07 10^3/uL (0.0-0.06); HCT 38.1 % (36.0-46.0); HGB 11.4 g/dL (11.2-15.7); Immature Grans % 0.6 %; MCH 22.5 pg (27.0-33.0); MCHC 29.9 % (32.0-36.0); MCV 75 fL (80-95); MPV 9.3 fL (8.0-11.0); Platelet Count 432 10^3/uL (130-400); RBC 5.06 10^6/uL (3.93-5.22); RDW 16.6 % (11.7-14.6); RDW-SD 44.3 fL; WBC 11.18 10^3/uL (4.4-10.8)
[2025-11-11] MEDS: Prochlorperazine 10 MG/2 ML VIAL 5 MG IVP (14:05)
[2025-11-11] MEDS: diphenhydrAMINE 50 MG/ML VIAL 12.5 MG IVP (14:06)
[2025-11-11 14:15] LABS: ALT 13 U/L (10-49); AST 15 U/L (<34); Albumin 4.4 g/dL (3.2-5.0); Alkaline Phosphatase 120 U/L (46-116); Anion Gap 6.1 mmol/L (3-11); BUN 15 mg/dL (9-23); Bilirubin, Total 0.2 mg/dL (0.2-1.2); CO2 25.9 mmol/L (20.0-31.0); Calcium 9.4 mg/dL (8.3-10.6); Chloride 107 mmol/L (98-107); Glucose 106 mg/dL (74-106); Magnesium 2.2 mg/dL (1.6-2.6); Potassium 3.7 mmol/L (3.5-5.1); Sodium 139 mmol/L (136-145); Total Protein 8.2 g/dL (5.7-8.2)
[2025-11-11 14:26] LABS: Troponin I 131 ng/L (<35)
--- NOTE | 2025-11-11 14:29 | DI.RAD_ITS ---
Exam(s) XR PORTABLE CHEST AP EXAM: XR PORTABLE CHEST AP CLINICAL HISTORY: Elevated troponin TECHNIQUE: 2D digital imaging was performed. COMPARISON: CR XR LUMBAR SPINE COMPLETE from 11/24/2022 FINDINGS: Exam is limited by under penetration particularly at the lung bases. LUNGS: Clear. No pleural abnormality seen. HEART: Normal size. AORTA: Normal diameter. BONES: Unremarkable for age. Soft tissues: Moderate to large-sized hiatal hernia. IMPRESSION: No acute findings. DATA REPOSITORY: RADIATION DOSE DELIVERED:
--- NOTE | 2025-11-11 14:30 | RT.EKG_ITS ---
APPROVED REPORT Exam: Resting ECG Reason for Exam: Repeat Patient Location: E HR:52 bpm ECG Measurements Heart Rate 52 AXIS ME 160 P 54 QRSd 156 QRS 51 QT 466 T 28 QTc 434 Conclusion Sinus bradycardia, rate 52 RBBB Otherwise no interval abnormalities No STEMI No significant changes from prior
[2025-11-11 14:39] LABS: Glucose Negative (Negative)
[2025-11-11] MEDS: Aspirin 81 MG CHEW 324 MG CH (15:02)
[2025-11-11] MEDS: Ketorolac 15 MG/ML VIAL IVP (15:04)
[2025-11-11] MEDS: Normal Saline 500 ML IV (15:04)
[2025-11-11] MEDS: Amoxicillin 875/Clav. 125 TAB PO (15:17)
[2025-11-11 15:21] LABS: COVID-19 PCR Negative (Negative); RSV PCR Negative (Negative)
--- NOTE | 2025-11-11 15:37 | W.EDPROG ---
Date of service: 11/11/25 Time of Service: 15:38 Medical Decision Making Handoff report received from Eliseo Evans TOP PRECIPITATOR OPERATOR HELPER, daytime EVELYN with repeat troponin pending. Please see her note for full HPI, ROS, PE, and interpretation of labs. In short, Christal is a 60 year old female w/ PMH of migraine, COPD, HTN, and HLD who presented to the ED today for evaluation of L sided ESTRADA not responding to usual sumatriptatn therapy x 3 days following flu sx (incl. n/v, diarrhea, URI sx). Has not been taking prescribed meds since viral sx started (4 days). Headache had been a consistent 3/10 until today at 10 am when she developed severe (10/10 L sided headache) with L sided weakness/numbness, blurred vision, dizziness/presyncope, and difficulty thinking. Symptoms except for ESTRADA persisted until arrival to ED via ambulance (approx 1300). CTA Workup notable for elevated troponin that are flat (131 > 12) CT head performed w/o contrast, notable for bilateral sinusitis with symmetrical bifrontal atrophy. EKG shows sinus bradycardia rate 52 with RBBB. No acute abnormality noted on portable CXR. CTA reassuring, mild calcification within the internal carotid arteries (R>L), no evidence of significant stenosis, occlusion, or dissection. History and presentation concerning for TIA; pt currently asymptomatic. Discussed case with Dr. Cleveland and Zhanna Verma APRN, hospitalist team. Telemetry neurology evaluation requested prior to admission. Consulted with Dr. Brunson, [facility] [place]rology. She agrees that this was most likely a TIA. Patient has NIH score 1, mild left-sided facial droop noted, no acute findings on CTA or CT. Recommends inpatient admission for TIA workup including MRI and echo tomorrow morning. She does advise loading dose of aspirin 324 mg (which has been already performed), followed by baby aspirin daily. Statins may be increased if LDL is elevated. Hospitalist team updated on plan of care, are agreeable with admission. Imaging Data Radiologic Study: Radiologist's impression: Exam(s) CT BRAIN NECK CTA EXAM: CT BRAIN NECK CTA CLINICAL HISTORY: ?TIA, severe ESTRADA with L sided weakness. TECHNIQUE: Imaging Protocol: Axial CT angiography was performed with multi-slice acquisition and multi-planar and MIP reconstructions. CONTRAST MATERIAL: Intravenous: Omnipaque 350 Contrast volume:100 ml COMPARISON: CT CT HEAD WO from 11/11/2025 FINDINGS: CT Head W/O and W contrast: Ventricles and Extra axial spaces: Normal in size and morphology for the patient's age. Hemorrhage: None. Cerebral parenchyma: No evidence of acute infarct or mass. Mild atrophy. Midline shift: None. Brainstem/Cerebellum: No acute findings.. Calvarium: Normal. Visualized Paranasal sinuses/Mastoids: Chronic pansinusitis. Soft Tissues: Unremarkable. Enhancement: Normal. Venous sinuses are patent. CTA Brain W: Internal Carotid Arteries: Mild mural calcifications. Right: No aneurysm or occlusion. Mild stenosis. Left: No aneurysm, occlusion or significant stenosis. Middle Cerebral Arteries: Right: No aneurysm, occlusion or significant stenosis. Left: No aneurysm, occlusion or significant stenosis. Anterior Cerebral Arteries: Right: No aneurysm, occlusion or significant stenosis. Left: No aneurysm, occlusion or significant stenosis. Posterior cerebral Arteries: Right: No aneurysm, occlusion or significant stenosis. Left: No aneurysm, occlusion or significant stenosis. Vertebral Arteries: Right: No aneurysm, occlusion or significant stenosis. Left: No aneurysm, occlusion or significant stenosis. Basilar Artery: No aneurysm, occlusion or significant stenosis. CTA Neck W: Visualized aorta: Athero sclerotic plaque at the arch. Visualized pulmonary arteries: Unremarkable. Subclavian arteries: Focal plaque at the proximal right subclavian artery. Common Carotid: Right: No dissection, occlusion or significant stenosis. Left: No dissection, occlusion or significant stenosis. External Carotid: Right: No dissection, occlusion or significant stenosis. Left: No dissection, occlusion or significant stenosis. Internal Carotid: Right: The right internal carotid artery deviates to the midline, anterior to the spine distally. There is multifocal plaque proximal causing mild stenosis. Left: Mild calcification proximally. No dissection, occlusion or significant stenosis. Vertebral Artery: Right: No dissection, occlusion or significant stenosis. Left: No dissection, occlusion or significant stenosis. Lung Apices: No acute findings. Bones: No acute abnormality. Soft Tissues: Normal. IMPRESSION: 1. CTA brain: Mild calcification within the intracranial internal carotid arteries but no significant stenosis. 2. Head CT: No acute abnormality. Chronic sinus disease. 3. CTA neck: Calcific plaque at the proximal internal carotid arteries, right greater than left. No evidence of occlusion, significant stenosis or dissection. Discharge Plan Disposition Patient Disposition: Admit to [facility] Condition: Stable Discharge Details Clinical Impression: TIA (transient ischemic attack), Elevated troponin Admit Date/Time: 11/11/25 18:30 Admit Provider: Jose Cleveland Attending Provider: Jose Cleveland Primary Care Provider: Jessica Elizabeth ED Provider: Dia Lin Discharge Data Discharge Date/Time-TO BE ENTERED AT DEPARTURE: 11/11/25 19:03
--- NOTE | 2025-11-11 15:51 | DI.CT_ITS ---
Exam(s) CT BRAIN NECK CTA EXAM: CT BRAIN NECK CTA CLINICAL HISTORY: ?TIA, severe ESTRADA with L sided weakness. TECHNIQUE: Imaging Protocol: Axial CT angiography was performed with multi- slice acquisition and multi-planar and MIP reconstructions. CONTRAST MATERIAL: Intravenous: Omnipaque 350 Contrast volume:100 ml COMPARISON: CT CT HEAD WO from 11/11/2025 FINDINGS: CT Head W/O and W contrast: Ventricles and Extra axial spaces: Normal in size and morphology for the patient's age. Hemorrhage: None. Cerebral parenchyma: No evidence of acute infarct or mass. Mild atrophy. Midline shift: None. Brainstem/Cerebellum: No acute findings.. Calvarium: Normal. Visualized Paranasal sinuses/Mastoids: Chronic pansinusitis. Soft Tissues: Unremarkable. Enhancement: Normal. Venous sinuses are patent. CTA Brain W: Internal Carotid Arteries: Mild mural calcifications. Right: No aneurysm or occlusion. Mild stenosis. Left: No aneurysm, occlusion or significant stenosis. Middle Cerebral Arteries: Right: No aneurysm, occlusion or significant stenosis. Left: No aneurysm, occlusion or significant stenosis. Anterior Cerebral Arteries: Right: No aneurysm, occlusion or significant stenosis. Left: No aneurysm, occlusion or significant stenosis. Posterior cerebral Arteries: Right: No aneurysm, occlusion or significant stenosis. Left: No aneurysm, occlusion or significant stenosis. Vertebral Arteries: Right: No aneurysm, occlusion or significant stenosis. Left: No aneurysm, occlusion or significant stenosis. Basilar Artery: No aneurysm, occlusion or significant stenosis. CTA Neck W: Visualized aorta: Athero sclerotic plaque at the arch. Visualized pulmonary arteries: Unremarkable. Subclavian arteries: Focal plaque at the proximal right subclavian artery. Common Carotid: Right: No dissection, occlusion or significant stenosis. Left: No dissection, occlusion or significant stenosis. External Carotid: Right: No dissection, occlusion or significant stenosis. Left: No dissection, occlusion or significant stenosis. Internal Carotid: Right: The right internal carotid artery deviates to the midline, anterior to the spine distally. There is multifocal plaque proximal causing mild stenosis. Left: Mild calcification proximally. No dissection, occlusion or significant stenosis. Vertebral Artery: Right: No dissection, occlusion or significant stenosis. Left: No dissection, occlusion or significant stenosis. Lung Apices: No acute findings. Bones: No acute abnormality. Soft Tissues: Normal. IMPRESSION: 1. CTA brain: Mild calcification within the intracranial internal carotid arteries but no significant stenosis. 2. Head CT: No acute abnormality. Chronic sinus disease. 3. CTA neck: Calcific plaque at the proximal internal carotid arteries, right greater than left. No evidence of occlusion, significant stenosis or dissection. RADIATION DOSE DELIVERED: Total DLP DATA REPOSITORY: All CT scans at this facility are submitted to the National Radiology Data Registry (NRDR) Dose Index Registry (DIR) with the [employer] (ACR). RADIATION OPTIMIZATION: All CT scans at this facility use at least one of these dose optimization techniques: automated exposure control; mA and/or kV adjustment per patient size (includes targeted exams where dose is matched to clinical indication); or iterative reconstruction.
[2025-11-11 15:59] LABS: Troponin I 123 ng/L (<35)
[2025-11-11] MEDS: Omnipaque 350 MG/ML 100 ML BTL IJ (16:13)
[2025-11-11] MEDS: Normal Saline Flush 10 ML SYR IVP (16:13)
[2025-11-11] MEDS: Normal Saline - Diluent 50 ML VIAL IJ (16:13)
[2025-11-11 18:45] LABS: Cholesterol 210 mg/dL (<200); HDL Cholesterol 39 mg/dL (>or=50)
[2025-11-11] MEDS: Enoxaparin 40 MG/0.4 ML SYR SC (20:13)
[2025-11-11] MEDS: Atorvastatin 40 MG TAB 80 MG PO (20:13)
[2025-11-11] MEDS: rOPINIRole 0.5 MG TAB 0.25 MG PO (20:14)
--- NOTE | 2025-11-11 20:18 | W.PM.HP.N ---
Date of service: 11/11/25 Time of Service: 20:19 Assessment and Plan Assessment and plan (1) TIA (transient ischemic attack): Start date: 11/11/25 Status: Acute Assessment and plan: This is a 60-year-old lady with recent URI symptoms now with sudden onset of headache with neurological symptoms mostly resolved with headache persisting. She had a left-sided headache which she denies being specifically over the religious area and exam not revealing tenderness over the religious, but associated left-sided weakness and inability to use a phone which she was aware of with no true speech deficits reported. She did not fall. She was brought to the ED by her family after she eventually reached in by phone. Symptoms resolved by time she came to ED and she was loaded with aspirin with a baby aspirin to be given daily. CT of the head revealed no acute infarct or occlusions. Teleneurology recommends MRI of the brain and echocardiogram with observation on telemetry. Patient was also started on prednisone 60 mg because of elevated sed rate and her left-sided headache as discussed below. She has a full code. (2) Elevated troponin: Start date: 11/11/25 Status: Acute Assessment and plan: Patient has no history of heart disease but does have atherosclerosis on her CTA of the head. Cholesterol is not well-controlled on maximum dose atorvastatin and Zetia will be added. There are no acute EKG changes and the patient is not having chest pain. This may be noncardiac troponin elevation but will be trended. (3) Sudden onset unilateral headache: Status: Acute Assessment and plan: Patient did have sudden onset of headache on the left side after a prolonged URI recently. She does have a history of sinus disease. She has some visual changes and confusion with her headache and is being evaluated for TIA. She did not receive treatment for her headache with Imitrex at this time which will be withheld. Is slightly improved. Sed rate was elevated and because of unilateral headache patient was started on 60 mg of prednisone considering giant cell arteritis in the differential. Sed rate should be followed up on prednisone and consider oncological evaluation if sed rate responding to prednisone. Biopsy should be considered as well. (4) Migraine headache: Status: Chronic Assessment and plan: Patient has history of migraine headaches but this headache different. She did not take Imitrex. (5) HTN (hypertension): Status: Chronic (6) GERD (gastroesophageal reflux disease): Status: Chronic Discharge Planning Discharge Planning: Anticipate less than 48 hours observation with discharge home for outpatient follow-up. History of Present Illness History of Present Illness Chief Complaint: URI symptoms since , sudden onset left headache with left weakness Narrative: This is a 60-year-old female patient who is morbidly obese with a large pannus reported to the ED with a history of sudden onset left-sided headache with confusion not being able to use the phone, left-sided weakness and visual changes. These were sudden onset just prior to reporting to the ED and patient did call family after some effort to eventually called EMS and brought her to the ED. In the ED she only had a left-sided headache persisting but the rest of her symptoms had cleared. She has no history of previous CVA. She recently did have an illness with upper respiratory symptoms since which caused some left sinus pressure which persist with the rest of her URI symptoms clearing. She had no fever or cough. Imaging in the ED did not reveal any acute changes or significant stenosis though both carotid arteries had calcific plaques that the origin of the internal carotid arteries. The CT did show chronic sinus disease. At the time I saw the patient her headache was slightly improved but not resolved. Teleneurology did review the patient in the ED and advised aspirin loading dose and then daily as well as observation with telemetry and MRI be done in the morning with echocardiogram. Patient does have hypertension and is on treatment for this. Lab did reveal elevated WBC and platelet count with microcytosis and was negative for COVID/flu and RSV. Lab did also reveal an elevated troponin which appeared to be plateaued around 130 with 3 repeats and sed rate was elevated at 77 mm/h and with the patient's left headache, prednisone 60 mg was initiated. Differential diagnosis is a TIA but also giant cell arteritis is a consideration. She was observed in the ED and will have imaging in the morning with consideration of discussing giant cell arteritis evaluation by neurology and ophthalmology if sed rate responds to prednisone. Patient will be continued on aspirin. She is a full code. Review of Systems Narrative: 13 point review of systems otherwise unrevealing or stable. Patient does have chronic sinus pressure which is worse with a recent URI. PFSH All Active Problems (Updated 11/12/25 @ 06:58 by All [place]) GERD (gastroesophageal reflux disease) (Chronic) HTN (hypertension) (Chronic) Migraine headache (Chronic) Sudden onset unilateral headache (Acute) Elevated troponin (Acute) TIA (transient ischemic attack) (Acute) Social History Smoking/Tobacco Use Status: Current every day Tobacco Type: cigarettes Years smoked: 35 Smoking risk assessment performed?: Yes Alcohol Intake: never Drug use: Never Substance use type: does not use Do you feel safe at home: Yes Do you feel safe in your relationship?: Yes Meds Allergies and Home Medications Allergies Allergy/AdvReac Type Severity Reaction Status Date / Time DAVIDA Inhibitors AdvReac Severe Swelling/Ed Unverified 11/24/22 08:50 rose methocarbamol AdvReac Intermediate Nausea Unverified 11/24/22 08:50 Home Medications ?Medication ?Instructions ?Recorded ?Confirmed ?Type albuterol sulfate 90 mcg/actuation 2 puff inhalation Q4H PRN 11/24/22 11/11/25 History aerosol inhaler (ProAir HFA) atorvastatin 80 mg tablet 80 mg PO HS 11/24/22 11/11/25 History beclomethasone dipropionate 80 2 inh inhalation BID 11/24/22 11/11/25 History mcg/actuation HFA breath activated aerosol (Qvar RediHaler) cholecalciferol (vitamin D3) 25 25 mcg PO DAILY 11/24/22 11/11/25 History mcg (1,000 unit) capsule cyclobenzaprine 10 mg tablet 10 mg PO TID PRN #20 tabs 11/24/22 11/11/25 Rx Held on 11/11/25. Instructions: Pt Stopped/Never Started diltiazem HCl 120 mg 120 mg PO DAILY 11/24/22 11/11/25 History capsule,extended release 24 hr, controlled (DILT-XR) ferrous sulfate 220 mg/5 mL oral 440 mg PO DAILY 11/24/22 11/11/25 History elixir Held on 11/11/25. Instructions: Pt Stopped/Never Started hydrochlorothiazide 25 mg tablet 25 mg PO DAILY 11/24/22 11/11/25 History metformin 500 mg tablet 500 mg PO DAILY 11/24/22 11/11/25 History Held on 11/11/25. Instructions: Pt Stopped/Never Started omeprazole 20 mg capsule,delayed 20 mg PO DAILY 11/24/22 11/11/25 History release ropinirole 0.25 mg tablet 0.25 mg PO HS 11/24/22 11/11/25 History sumatriptan succinate 100 mg 100 mg PO PRN PRN 11/24/22 11/11/25 History tablet (Imitrex) Exam Narrative Exam Narrative: General: Patient appears older than stated age, morbidly obese especially over the trunk, alert and oriented x 3 and in no acute distress. Fair eye contact. HEENT: Normocephalic, eyes with pupils equal and reactive to light symmetrically, extraocular movement tact and sclera anicteric. Oropharynx with moist mucosa and good dentition. Neck: Supple without JVD. Back: Kyphotic without CVA tenderness. Lungs: Fair aeration and clear to auscultation percussion. Bronchovesicular breath sounds diffusely with slightly increased expiratory phase and expiratory wheeze which is scattered. No focalizing rales or rhonchi. Breast: Exam deferred. Heart: Distant heart sounds with regular rate and rhythm and no appreciable murmur or gallop. Abdomen: Large pannus, soft palpation with no palpable hepatosplenomegaly. Bowel sounds positive in all quadrants. No guarding or rebound. Genitalia/rectal: Exam deferred. Extremities: Without clubbing, cyanosis or grossly pitting edema. Fair capillary refill. Skin: Normal color, warm and dry. Neuro: Cranial nerves II through XII grossly intact, no focalized motor deficits or tremor. Psych: Normal affect and mood. No abnormal thought processes. Remote and recent memory intact. Results Imaging Imaging Studies: EXAM: CT BRAIN NECK CTA CLINICAL HISTORY: ?TIA, severe ESTRADA with L sided weakness. TECHNIQUE: Imaging Protocol: Axial CT angiography was performed with multi-slice acquisition and multi-planar and MIP reconstructions. CONTRAST MATERIAL: Intravenous: Omnipaque 350 Contrast volume:100 ml COMPARISON: CT CT HEAD WO from 11/11/2025 FINDINGS: CT Head W/O and W contrast: Ventricles and Extra axial spaces: Normal in size and morphology for the patient's age. Hemorrhage: None. Cerebral parenchyma: No evidence of acute infarct or mass. Mild atrophy. Midline shift: None. Brainstem/Cerebellum: No acute findings.. Calvarium: Normal. Visualized Paranasal sinuses/Mastoids: Chronic pansinusitis. Soft Tissues: Unremarkable. Enhancement: Normal. Venous sinuses are patent. CTA Brain W: Internal Carotid Arteries: Mild mural calcifications. Right: No aneurysm or occlusion. Mild stenosis. Left: No aneurysm, occlusion or significant stenosis. Middle Cerebral Arteries: Right: No aneurysm, occlusion or significant stenosis. Left: No aneurysm, occlusion or significant stenosis. Anterior Cerebral Arteries: Right: No aneurysm, occlusion or significant stenosis. Left: No aneurysm, occlusion or significant stenosis. Posterior cerebral Arteries: Right: No aneurysm, occlusion or significant stenosis. Left: No aneurysm, occlusion or significant stenosis. Vertebral Arteries: Right: No aneurysm, occlusion or significant stenosis. Left: No aneurysm, occlusion or significant stenosis. Basilar Artery: No aneurysm, occlusion or significant stenosis. CTA Neck W: Visualized aorta: Athero sclerotic plaque at the arch. Visualized pulmonary arteries: Unremarkable. Subclavian arteries: Focal plaque at the proximal right subclavian artery. Common Carotid: Right: No dissection, occlusion or significant stenosis. Left: No dissection, occlusion or significant stenosis. External Carotid: Right: No dissection, occlusion or significant stenosis. Left: No dissection, occlusion or significant stenosis. Internal Carotid: Right: The right internal carotid artery deviates to the midline, anterior to the spine distally. There is multifocal plaque proximal causing mild stenosis. Left: Mild calcification proximally. No dissection, occlusion or significant stenosis. Vertebral Artery: Right: No dissection, occlusion or significant stenosis. Left: No dissection, occlusion or significant stenosis. Lung Apices: No acute findings. Bones: No acute abnormality. Soft Tissues: Normal. IMPRESSION: 1. CTA brain: Mild calcification within the intracranial internal carotid arteries but no significant stenosis. 2. Head CT: No acute abnormality. Chronic sinus disease. 3. CTA neck: Calcific plaque at the proximal internal carotid arteries, right greater than left. No evidence of occlusion, significant stenosis or dissection. Labs 11/12/25 06:12 11/11/25 13:37 Labs: Laboratory Results - last 24 hr 11/11/25 11/11/25 11/11/25 13:37 14:26 14:40 WBC 11.18 H RBC 5.06 Hgb 11.4 Hct 38.1 MCV 75 L MCH 22.5 L MCHC 29.9 L RDW 16.6 H Plt Count 432 H MPV 9.3 Immature Gran % 0.6 Neutrophils % 66.4 Lymphocytes % 15.9 Monocytes % 11.9 Eosinophils % 4.0 Basophils % 1.2 Nucleated RBC % 0.0 Absolute Neutrophils 7.42 H Absolute Lymphocytes 1.78 Absolute Monocytes 1.33 H Absolute Eosinophils 0.45 Absolute Basophils 0.13 Sodium 139 Potassium 3.7 Chloride 107 Carbon Dioxide 25.9 Anion Gap 6.1 BUN 15 Creatinine 0.76 Est GFR (CKD-EPI 2020) 77.05 Glucose 106 Calcium 9.4 Magnesium 2.2 Total Bilirubin 0.2 AST 15 ALT 13 Alkaline Phosphatase 120 H Troponin I 131 H* Total Protein 8.2 Albumin 4.4 Triglycerides Total Cholesterol LDL Cholesterol, Calc HDL Cholesterol Urine Color Yellow Urine Clarity Clear Urine pH 5.5 Ur Specific [place] 1.010 Urine Protein Negative Urine Ketones Negative Urine Blood Negative Urine Nitrite Negative Urine Bilirubin Negative Urine Urobilinogen 0.2 Ur Leukocyte Esterase Negative Urine Glucose Negative COVID-19 Source Nasopharynx SARS-CoV-2 (PCR) Negative Influenza Type A (PCR) Negative Influenza Type B (PCR) Negative RSV (PCR) Negative 11/11/25 11/11/25 11/11/25 15:10 15:30 16:31 WBC RBC Hgb Hct MCV MCH MCHC RDW Plt Count MPV Immature Gran % Neutrophils % Lymphocytes % Monocytes % Eosinophils % Basophils % Nucleated RBC % Absolute Neutrophils Absolute Lymphocytes Absolute Monocytes Absolute Eosinophils Absolute Basophils Sodium Potassium Chloride Carbon Dioxide Anion Gap BUN Creatinine Est GFR (CKD-EPI 2020) Glucose Calcium Magnesium Total Bilirubin AST ALT Alkaline Phosphatase Troponin I 123 H* Cancelled Total Protein Albumin Triglycerides 191 H Total Cholesterol 210 H LDL Cholesterol, Calc 132.4 H HDL Cholesterol 39 L Urine Color Urine Clarity Urine pH Ur Specific [place] Urine Protein Urine Ketones Urine Blood Urine Nitrite Urine Bilirubin Urine Urobilinogen Ur Leukocyte Esterase Urine Glucose COVID-19 Source SARS-CoV-2 (PCR) Influenza Type A (PCR) Influenza Type B (PCR) RSV (PCR) Last Vital Signs Temp 36.6 C 11/11/25 16:04 Pulse 57 L 11/11/25 17:30 Resp 21 11/11/25 17:20 BP 141/45 H 11/11/25 17:03 Pulse Ox 95 11/11/25 17:30 VTE Prohylaxis Risk Level: Moderate/High Risk Contraindications: None Prophylaxis: Pharmacologic and Mechanical Time Spent Time spent with Patient: >75 minutes Time was spent: preparing to see the patient(eg.review tests), obtaining and/or reviewing separately otained hiistory, ordering medications,tests, procedures, referring, communicating with other health healthcare facility administrator, indepentently interpreting results, counseling the patient and care coordination
[2025-11-11] MEDS: Ezetimibe 10 MG TAB PO (20:39)
[2025-11-11 23:52] LABS: ESR 77 mm/hr (0-30)
[2025-11-12] VITALS (54 sets, daily range): BP systolic 151–163; BP diastolic 45–46; PULSE 48–92; RESP 8–27; O2SAT 90–98
--- NOTE | 2025-11-12 | DI.US_ITS ---
APPROVED REPORT EXAM: Comprehensive 2D, Doppler, and color-flow Echocardiogram Patient Location: ER Room/Bed: 5 Interlocking Tower Operator: Sienna Baer RDCS (AE) Indications: TIA Other Information Study Quality: Fair. Technically limited study due to body habitus, exam done bedside ER. Conclusion Normal left ventricular wall thickness and chamber size. EF is 60%. Wall motion is normal Normal right ventricular size and function Both atria are normal in size Trileaflet aortic valve with mild regurgitation Mild mitral annular calcification Ascending aorta is mildly dilated measuring 3.5 cm Wall motion Left Ventricle Technically limited imaging. The left ventricular systolic function is normal. The left ventricular ejection fraction is within the normal range. There is normal LV segmental wall motion. There is no ventricular septal defect visualized. LVEF is 60%. Right Ventricle Right ventricle is grossly normal in size. Right ventricular systolic function is grossly normal. Atria The left atrium size is normal. The right atrium size is normal. The interatrial septum is intact with no evidence for an atrial septal defect. Aortic Valve The aortic valve is normal in structure. Aortic valve is trileaflet. There is no aortic valvular stenosis. Mild aortic regurgitation. Mitral Valve Mild mitral annular calcification. No evidence of mitral valve stenosis. Trace mitral regurgitation. Tricuspid Valve The tricuspid valve is normal in structure. There is no tricuspid valve stenosis. Trace tricuspid regurgitation. Unable to assess PA pressure. Pulmonic Valve The pulmonary valve is normal in structure. There is no pulmonic valvular stenosis. Trace pulmonic regurgitation. Great Vessels The aortic root is normal in size. The ascending aorta is mildly dilated. Aortic arch is not well visualized. IVC is normal in size and collapses >50% with inspiration. Pericardium There is no pericardial effusion. 2D Dimensions Ao Root d 3.29 cm F: 2.7 - 3.3 Ao Asc Diam d 3.50 cm F: 2.3 - 3.1 M-Mode TAPSE 2.75 cm (M/F) >1.7 Auto EF LV EDV A4C 165.9 mL LV EDV A2C 131.6 mL LV EDV BP 150.7 mL LV ESV A4C 68.4 mL LV ESV A2C 54.4 mL LV ESV BP 61.6 mL LVEF(%) A4C 58.8 % LVEF(%) A2C 58.7 % LVEF(%) BP 59.1 % LV SV A4C 97.5 ml LV SV A2C 77.2 ml LV SV BP 89.1 ml LV CO A4C 5.6 L/min LV CO A2C 4.3 L/min LV CO BP 4.9 L/min HR A4C 57.04 BPM HR A2C 55.30 BPM LV EDV Index (BP) LA Volume LA Length A4C 5.7 cm LA Length A2C 5.3 cm LA Area A4C s 24.27 cm2 LA Area A2C s 20.15 cm2 LA Vol A4C A-L 87.22 mL LA Vol A2C A-L 65.18 mL LA Vol Biplane A-L 78.5 mL LA Vol/BSA A4C A-L LA Vol/BSA A2C A-L LA Vol/BSA BP A-L 25.7 mL/m2 LA Vol A4C MOD 82.1 mL LA Vol A2C MOD 61.2 mL LA Vol BP MOD 73.5 mL RA Volume RA Area A4C 12.4 cm2 RA ESV A4C (A-L) 29.7mL RA Vol/BSA A4C A-L RA Length A4C 4.4 cm RA ESV A4C (MOD) 27.6mL LV Diastology MV E' medial 0.067 (>0.07 m/s) MV E Vmax 1.05 (0.4-1.3 m/s) MV E/E' MED 15.73 (<14) MV A Vmax 1.10 (0.4-1.3 m/s) MV E' lateral 0.087 (>0.1 m/s) E/A Ratio 1.0 MV E/E' LAT 12.02 (<14) MV E' Average 0.077 m/s MV E/E'(average) 13.63 Aortic Valve AoV Vmax 1.59 m/s LVOT Vmax 1.29 m/s AoV Peak Grad 41.2 mmHg LVOT Peak Grad 6.6 mmHg AoV Area (Vmax) 2.47 cm2 LVOT VTI 0.355 m AoV VTI 0.395 m LVOT Mean Grad 3.6 mmHg AoV Mean Theo. 1.05 m/s LVOT SV 108.23 mL AoV Mean Grad 5.0 mmHg LVOT Diam s 1.95 cm AoV Area (VTI) 2.74 cm2 AV Regurg Peak Gr. 10.10 mmHg Velocity Ratio 0.81 AR Decel Edmunds 1.2m/sec2 AR DT 3639 msec AR PHT 1055 msec AR Vmax 4.25 m/s Mitral Valve MV DT 278 (160-240 msec) MV Vmax TIPS 1.07 m/s MV Mean Grad 1.9 (<2mmHg) MV VTI 0.442 m Pulmonary Valve PV Vmax 1.06 (0.5-1.5 m/s) RVOT Vmax 1.01 m/s PV Peak Grad 4.5 mmHg RVOT Peak Gr. 4.1 mmHg PV Mean Theo 0.78 m/s RVOT VTI 0.270 m PV Mean Grad 2.7 mmHg RVOT Mean Gr. 2.2 mmHg Tricuspid Valve RA Pressure 3.00 mmHg TV S' 0.17 m/s
[2025-11-12 01:48] LABS: Troponin I 131 ng/L (<35)
[2025-11-12 06:27] LABS: Abs Immature Grans 0.05 10^3/uL (0.0-0.06); HCT 35.6 % (36.0-46.0); HGB 10.5 g/dL (11.2-15.7); Immature Grans % 0.6 %; MCH 22.2 pg (27.0-33.0); MCHC 29.5 % (32.0-36.0); MCV 75 fL (80-95); MPV 9.7 fL (8.0-11.0); Platelet Count 377 10^3/uL (130-400); RBC 4.74 10^6/uL (3.93-5.22); RDW 16.5 % (11.7-14.6); RDW-SD 43.8 fL; WBC 7.83 10^3/uL (4.4-10.8)
[2025-11-12 06:49] LABS: ALT 12 U/L (10-49); AST 15 U/L (<34); Albumin 3.9 g/dL (3.2-5.0); Alkaline Phosphatase 102 U/L (46-116); Anion Gap 8.7 mmol/L (3-11); BUN 12 mg/dL (9-23); Bilirubin, Total 0.5 mg/dL (0.2-1.2); CO2 24.3 mmol/L (20.0-31.0); Calcium 9.3 mg/dL (8.3-10.6); Chloride 108 mmol/L (98-107); Glucose 120 mg/dL (74-106); Magnesium 2.1 mg/dL (1.6-2.6); Potassium 3.8 mmol/L (3.5-5.1); Sodium 141 mmol/L (136-145); Total Protein 7.4 g/dL (5.7-8.2); Troponin I 118 ng/L (<35)
[2025-11-12] MEDS: predniSONE 20 MG TAB 60 MG PO (06:55)
[2025-11-12] MEDS: Enoxaparin 60 MG/0.6 ML SYR SC (08:03)
[2025-11-12] MEDS: Amoxicillin 875/Clav. 125 TAB PO (08:04)
[2025-11-12] MEDS: Omeprazole 20 MG CAPCR PO (08:04)
[2025-11-12] MEDS: Aspirin 81 MG CHEW PO (08:04)
[2025-11-12] MEDS: dilTIAZem CD 120 MG CAPCR PO (08:04)
[2025-11-12] MEDS: Ezetimibe 10 MG TAB PO (08:04)
[2025-11-12] MEDS: hydroCHLOROthiazide 25 MG TAB PO (08:04)
[2025-11-12] MEDS: Normal Saline Flush 10 ML SYR IVP (08:05)
[2025-11-12 08:16] LABS: TSH 4.70 uIU/mL (0.55-4.78)
--- NOTE | 2025-11-12 08:30 | PDOC.CMDIS ---
Date of service: 11/12/25 Time of Service: 14:01 LACE Index Scoring Tool Questions: Length of Stay (in days): 1 Was the patient admitted via the E.D.?: Yes E.D. Visits: 1 Answers: Total Score: 5 Risk of Readmission: Low Risk Care Management Discharge Plan Reason for Hospitalization: TIA Discharge Plan: Christal will be discharged home today with no new services and a child monitor. It is recommended she follow up with her community providers, cardiology, and discharge plan of care. She will transport home via private vehicle. Patient/Family Education Needs: Review of discharge instruction, activity, limitations, and plan of care. Discuss ask me three.
[2025-11-12] MEDS: Ferrous Sulfate 44 MG/ML Liquid 440 MG PO (08:50)
[2025-11-12] MEDS: Mometasone 220 MCG 14 DOSE INHALER 1 PUFF IH (08:50)
--- NOTE | 2025-11-12 11:45 | DI.MRI_ITS ---
Exam(s) MR BRAIN WO EXAM: MR BRAIN WO CLINICAL HISTORY: TIA TECHNIQUE: Multiplanar multisequence MRI of the brain was performed. COMPARISON: CT CT BRAIN NECK CTA from 11/11/2025 FINDINGS: VENTRICLES AND EXTRA AXIAL SPACES: Normal in size and morphology for the patient's age. MIDLINE SHIFT: None. CEREBRAL PARENCHYMA: There is a small area of high T2 and FLAIR signal in the inferior posterior medial left occipital lobe with restricted diffusion, consistent with acute infarct. No other areas of restricted diffusion. No space-occupying lesion identified. Mild atrophy, somewhat disproportionate to patient's age. Mild to moderate scattered foci of high signal in the white matter consistent with sequela of chronic microvascular disease. BRAINSTEM/CEREBELLUM: Normal. VISUALIZED PARANASAL SINUSES: Chronic pansinusitis. MASTOIDS:Clear. Vasculature: Normal flow void. PITUITARY GLAND: Unremarkable. ORBITS: Unremarkable. IMPRESSION: Acute infarct in the posteromedial left occipital lobe. DATA REPOSITORY:
--- NOTE | 2025-11-12 13:20 | W.PM.DS.N ---
Date of service: 11/12/25 Time of Service: 13:00 DS: Diagnosis Discharge Diagnosis (1) CVA (cerebral vascular accident): Status: Chronic Asessment and Plan: -MRI revealed acute infarct in the posteromedial left occipital lobe, mild L sided facial droop, no significant deficits -pt started on dual antiplatelet therapy (plavix 75 mg daily and ASA 81 mg daily), as well as ezetimbe 10mg daily in addition to atorvastatin 80 mg -pt to f/u with [facility] [place] for further evaluation/management (2) Sinusitis: Status: Acute Asessment and Plan: - will continue Augmentin PO for treatment of bilateral sinusitis (3) Elevated troponin: Status: Acute Asessment and Plan: -resolved, troponins flat (4) Sudden onset unilateral headache: Status: Acute Asessment and Plan: -most consistent with CVA as noted above -Prednisone discontinued (5) Migraine headache: Status: Chronic Asessment and Plan: -continue home medications as prescribed (6) HTN (hypertension): Status: Chronic Asessment and Plan: -continue home medications as prescribed (7) GERD (gastroesophageal reflux disease): Status: Chronic Asessment and Plan: -continue home medications as prescribed Discharge Plan Disposition Patient Disposition: Home Anticipated Discharge Date/Time: 11/12/25 12:48 Condition: Good Discharge Details Reason For Visit: TIA Admit Date/Time: 11/11/25 18:30 Admit Provider: Jose Cleveland Attending Provider: Jose Cleveland Primary Care Provider: Jessica Elizabeth Hospital Course Hospital Course: Christal is a 60 year old female with PMH of migraine, COPD, HTN, and HLD who presented to the ED today for evaluation of L sided ESTRADA not responding to usual sumatriptatn therapy x 3 days following flu sx (incl. n/v, diarrhea, URI sx). Has not been taking prescribed meds since viral sx started (4 days). Headache had been a consistent 01/21 until 11/11 at 10 am when she developed severe (10/10 L sided headache) with L sided weakness/numbness, blurred vision, dizziness/presyncope, and difficulty thinking. Symptoms except for ESTRADA persisted until arrival to ED via ambulance (approx 1300). Workup notable for elevated troponins that remained stable (131 > 123>131>118) CT head performed w/o contrast, notable for bilateral sinusitis with symmetrical bifrontal atrophy. CTA reassuring, mild calcification within the internal carotid arteries (R>L), no evidence of significant stenosis, occlusion, or dissection. Consulted with Dr. Brunson, [facility], who recommended inpatient admission for TIA workup including MRI and echo. Echo performed in AM, no acute abnormalities. MRI notable for acute infarct in the posteromedial L occipital lobe. Per teleneurologist recommendation, initiated baby aspirin daily after loading dose of 324 mg, optimizing statins (addition of ezetimbe to max dose atorvastatin), and dual antiplatelet therapy (baby ASA + plavix). Pt to f/u with [facility] neurolog[place] outpatient. Home Meds and New Rx's Prescriptions: New aspirin 81 mg Tablet,Chewable 81 mg PO DAILY Qty: 90 0RF amoxicillin-pot clavulanate 875-125 mg Tablet 1 tab PO BID Qty: 10 0RF ezetimibe 10 mg Tablet 10 mg PO DAILY Qty: 90 0RF clopidogrel [Plavix] 75 mg tablet 75 mg PO DAILY Qty: 90 0RF Continued hydrochlorothiazide 25 mg Tablet 25 mg PO DAILY ropinirole 0.25 mg Tablet 0.25 mg PO HS cholecalciferol (vitamin D3) 25 mcg (1,000 unit) Capsule 25 mcg PO DAILY atorvastatin 80 mg Tablet 80 mg PO HS sumatriptan succinate [Imitrex] 100 mg Tablet 100 mg PO PRN PRN diltiazem HCl [DILT-XR] 120 mg Capsule,Ext.Rel 24h Degradable 120 mg PO DAILY omeprazole 20 mg Capsule,Delayed Release(Dr/Ec) 20 mg PO DAILY albuterol sulfate [ProAir HFA] 90 mcg/actuation Hfa Aerosol Inhaler 2 puff INHALATION Q4H PRN Qvar RediHaler 80 mcg/actuation Hfa Aerosol Breath Activated 2 inh INHALATION BID Discharge Instructions Additional Instructions: Please call to schedule a follow up appointment with [facility] neurology at [phone]. MRI showed that you sustained a small stroke in the L occipital area of your brain. It is very important that you follow up with neurology and work with your primary care provider to discuss ways to prevent a repeat stroke. You are also being started on a second medication for cholesterol. You will now take the ezetimbe as well as your atorvastatin. You are being started on antiplatelet therapy to help prevent new blood clots/repeat stroke. Please take the plavix and baby aspirin daily as prescribed. Please note that these medications increase your risk of bleeding, so please keep an eye out for blood in your stool and note that nosebleeds or cuts may bleed more severely. Return to emergency care immediately if you develop new severe headache, vision changes, balance problems, new weakness, chest pain, uncontrollable bleeding, sustain a head injury, or if you are very worried and need to be rechecked again immediately. Stand Alone Forms: Portal Information Referrals: Jessica Elizabeth [Primary Care Provider, Medicine] Referral Note: follow up in 1-2 weeks. Activity:: Activity as Tolerated Equipment/Supplies:: No Equipment Needed Diet:: Normal Diet Discharge Orders Discharge Orders: Discharge Order (Routine); Ordered 11/12/25 Ordered By: Dale Joe DS: Summary Time Spent with Patient providing and/or coordinating discharge services: Greater than 30 minutes Status at Discharge Functional status at discharge: independent ambulation Overall status at discharge: patient is back to baseline Mental Status: mental status grossly normal Speech and Movement: speech and movement normal Mood: congruent mood Affect: normal affect Exam Const General: cooperative, healthy appearing, comfortable, no acute distress and well developed Nutritional Appearance: overweight Orientation: alert and oriented x3 HENMT Head: normal to inspection and atraumatic Ears: hearing grossly normal bilaterally General nose exam: external nose normal Face and sinus: normal facial exam Mouth: oral mucosae normal and moist mucous membranes Resp Effort & Inspection: normal respiratory effort and able to speak in complete sentences Neuro General: patient alert, patient oriented x3, tone normal and moves all extremities Cranial Nerves: CN's II-XI intact bilaterally, PERRL, EOM intact bilaterally, no nystagmus and facial strength normal Cognition: normal cognition Speech: speech normal Motor: muscle tone normal throughout Extrem General: normal to inspection Psych Mental Status: mental status grossly normal Speech and Movement: speech and movement normal Mood: congruent mood Affect: normal affect DS: Data Vitals/I&O Vitals and I&O: Vital Signs Temperature 97.9 F 11/11/25 16:04 Temperature Source Oral 11/11/25 16:04 Pulse 60 11/12/25 11:55 Pulse 66 11/12/25 11:55 Respiratory Rate 21 11/12/25 11:55 Respiratory Effort Normal, Non-Labored 11/12/25 06:20 Respiratory Depth Normal 11/12/25 06:20 Respiratory Pattern Normal 11/12/25 06:20 Blood Pressure 163/46 H 11/12/25 11:55 Blood Pressure Mean 89 11/12/25 11:55 Blood Pressure Position Supine 11/11/25 13:19 Pulse Oximetry 94 11/12/25 11:51 Oxygen Delivery Method Room Air 11/12/25 01:51 Oxygen Flow Rate 0 11/12/25 01:51 Pain Level 0 11/11/25 21:49 Comment BP not accurate 11/12/25 03:21 Intake & Output 11/11/25 11/12/25 11/12/25 23:59 11:59 23:59 Intake Total 500 / 500 Balance 500 / 500 Weight 290 lb Intake: IV 500 / 500 Other: Comment unmeasured Stool Size Moderate Stool Characteristics Formed Brown Black Data Completed and Pending Pending Labs at Discharge: 11/11/25 11/11/25 11/11/25 13:37 14:26 14:40 WBC 11.18 H RBC 5.06 Hgb 11.4 Hct 38.1 MCV 75 L MCH 22.5 L MCHC 29.9 L RDW 16.6 H Plt Count 432 H MPV 9.3 Immature Gran % 0.6 Neutrophils % 66.4 Lymphocytes % 15.9 Monocytes % 11.9 Eosinophils % 4.0 Basophils % 1.2 Nucleated RBC % 0.0 Absolute Neutrophils 7.42 H Absolute Lymphocytes 1.78 Absolute Monocytes 1.33 H Absolute Eosinophils 0.45 Absolute Basophils 0.13 ESR 77 H Sodium 139 Potassium 3.7 Chloride 107 Carbon Dioxide 25.9 Anion Gap 6.1 BUN 15 Creatinine 0.76 Est GFR (CKD-EPI 2020) 77.05 Glucose 106 Calcium 9.4 Magnesium 2.2 Total Bilirubin 0.2 AST 15 ALT 13 Alkaline Phosphatase 120 H Troponin I 131 H* Total Protein 8.2 Albumin 4.4 Triglycerides Total Cholesterol LDL Cholesterol, Calc HDL Cholesterol TSH Urine Color Yellow Urine Clarity Clear Urine pH 5.5 Ur Specific Zullinger 1.010 Urine Protein Negative Urine Ketones Negative Urine Blood Negative Urine Nitrite Negative Urine Bilirubin Negative Urine Urobilinogen 0.2 Ur Leukocyte Esterase Negative Urine Glucose Negative COVID-19 Source Nasopharynx SARS-CoV-2 (PCR) Negative Influenza Type A (PCR) Negative Influenza Type B (PCR) Negative RSV (PCR) Negative 11/11/25 11/11/25 11/11/25 15:10 15:30 16:31 WBC RBC Hgb Hct MCV MCH MCHC RDW Plt Count MPV Immature Gran % Neutrophils % Lymphocytes % Monocytes % Eosinophils % Basophils % Nucleated RBC % Absolute Neutrophils Absolute Lymphocytes Absolute Monocytes Absolute Eosinophils Absolute Basophils ESR Sodium Potassium Chloride Carbon Dioxide Anion Gap BUN Creatinine Est GFR (CKD-EPI 2020) Glucose Calcium Magnesium Total Bilirubin AST ALT Alkaline Phosphatase Troponin I 123 H* Cancelled Total Protein Albumin Triglycerides 191 H Total Cholesterol 210 H LDL Cholesterol, Calc 132.4 H HDL Cholesterol 39 L TSH Urine Color Urine Clarity Urine pH Ur Specific Zullinger Urine Protein Urine Ketones Urine Blood Urine Nitrite Urine Bilirubin Urine Urobilinogen Ur Leukocyte Esterase Urine Glucose COVID-19 Source SARS-CoV-2 (PCR) Influenza Type A (PCR) Influenza Type B (PCR) RSV (PCR) 11/12/25 11/12/25 01:00 06:12 WBC 7.83 RBC 4.74 Hgb 10.5 L Hct 35.6 L MCV 75 L MCH 22.2 L MCHC 29.5 L RDW 16.5 H Plt Count 377 MPV 9.7 Immature Gran % 0.6 Neutrophils % 57.1 Lymphocytes % 23.9 Monocytes % 10.5 Eosinophils % 6.5 Basophils % 1.4 Nucleated RBC % 0.0 Absolute Neutrophils 4.47 Absolute Lymphocytes 1.87 Absolute Monocytes 0.82 H Absolute Eosinophils 0.51 Absolute Basophils 0.11 ESR Sodium 141 Potassium 3.8 Chloride 108 H Carbon Dioxide 24.3 Anion Gap 8.7 BUN 12 Creatinine 0.78 Est GFR (CKD-EPI 2020) 74.78 Glucose 120 H Calcium 9.3 Magnesium 2.1 Total Bilirubin 0.5 AST 15 ALT 12 Alkaline Phosphatase 102 Troponin I 131 H* 118 H* Total Protein 7.4 Albumin 3.9 Triglycerides Total Cholesterol LDL Cholesterol, Calc HDL Cholesterol TSH 4.70 Urine Color Urine Clarity Urine pH Ur Specific Zullinger Urine Protein Urine Ketones Urine Blood Urine Nitrite Urine Bilirubin Urine Urobilinogen Ur Leukocyte Esterase Urine Glucose COVID-19 Source SARS-CoV-2 (PCR) Influenza Type A (PCR) Influenza Type B (PCR) RSV (PCR) Imaging MRI - head: Radiologist's impression: Exam(s) MR BRAIN WO EXAM: MR BRAIN WO CLINICAL HISTORY: TIA TECHNIQUE: Multiplanar multisequence MRI of the brain was performed. COMPARISON: CT CT BRAIN NECK CTA from 11/11/2025 FINDINGS: VENTRICLES AND EXTRA AXIAL SPACES: Normal in size and morphology for the patient's age. MIDLINE SHIFT: None. CEREBRAL PARENCHYMA: There is a small area of high T2 and FLAIR signal in the inferior posterior medial left occipital lobe with restricted diffusion, consistent with acute infarct. No other areas of restricted diffusion. No space-occupying lesion identified. Mild atrophy, somewhat disproportionate to patient's age. Mild to moderate scattered foci of high signal in the white matter consistent with sequela of chronic microvascular disease. BRAINSTEM/CEREBELLUM: Normal. VISUALIZED PARANASAL SINUSES: Chronic pansinusitis. MASTOIDS:Clear. Vasculature: Normal flow void. PITUITARY GLAND: Unremarkable. ORBITS: Unremarkable. IMPRESSION: Acute infarct in the posteromedial left occipital lobe. Lab and Radiology Reports: Laboratory Results WBC 7.83 10^3/uL (4.4-10.8) 11/12/25 06:12 RBC 4.74 10^6/uL (3.93-5.22) 11/12/25 06:12 Hgb 10.5 g/dL (11.2-15.7) L 11/12/25 06:12 Hct 35.6 % (36.0-46.0) L 11/12/25 06:12 MCV 75 fL (80-95) L 11/12/25 06:12 MCH 22.2 pg (27.0-33.0) L 11/12/25 06:12 MCHC 29.5 % (32.0-36.0) L 11/12/25 06:12 RDW 16.5 % (11.7-14.6) H 11/12/25 06:12 Plt Count 377 10^3/uL (130-400) 11/12/25 06:12 MPV 9.7 fL (8.0-11.0) 11/12/25 06:12 Immature Gran % 0.6 % 11/12/25 06:12 Neutrophils % 57.1 % 11/12/25 06:12 Lymphocytes % 23.9 % 11/12/25 06:12 Monocytes % 10.5 % 11/12/25 06:12 Eosinophils % 6.5 % 11/12/25 06:12 Basophils % 1.4 % 11/12/25 06:12 Nucleated RBC % 0.0 % (0.0-0.3) 11/12/25 06:12 Absolute Neutrophils 4.47 10^3/uL (1.2-6.7) 11/12/25 06:12 Absolute Lymphocytes 1.87 10^3/uL (1.2-3.4) 11/12/25 06:12 Absolute Monocytes 0.82 10^3/uL (0.1-0.8) H 11/12/25 06:12 Absolute Eosinophils 0.51 10^3/uL (0.0-0.7) 11/12/25 06:12 Absolute Basophils 0.11 10^3/uL (0.0-0.2) 11/12/25 06:12 ESR 77 mm/hr (0-30) H 11/11/25 13:37 Sodium 141 mmol/L (136-145) 11/12/25 06:12 Potassium 3.8 mmol/L (3.5-5.1) 11/12/25 06:12 Chloride 108 mmol/L (98-107) H 11/12/25 06:12 Carbon Dioxide 24.3 mmol/L (20.0-31.0) 11/12/25 06:12 Anion Gap 8.7 mmol/L (3-11) 11/12/25 06:12 BUN 12 mg/dL (9-23) 11/12/25 06:12 Creatinine 0.78 mg/dL (0.55-1.02) 11/12/25 06:12 Est GFR (CKD-EPI 2020) 74.78 (mL/min/1.73m2) 11/12/25 06:12 Glucose 120 mg/dL (74-106) H 11/12/25 06:12 Calcium 9.3 mg/dL (8.3-10.6) 11/12/25 06:12 Magnesium 2.1 mg/dL (1.6-2.6) 11/12/25 06:12 Total Bilirubin 0.5 mg/dL (0.2-1.2) 11/12/25 06:12 AST 15 U/L (<34) 11/12/25 06:12 ALT 12 U/L (10-49) 11/12/25 06:12 Alkaline Phosphatase 102 U/L (46-116) 11/12/25 06:12 Troponin I 118 ng/L (<35) H* 11/12/25 06:12 Total Protein 7.4 g/dL (5.7-8.2) 11/12/25 06:12 Albumin 3.9 g/dL (3.2-5.0) 11/12/25 06:12 Triglycerides 191 mg/dL (<150) H 11/11/25 15:30 Total Cholesterol 210 mg/dL (<200) H 11/11/25 15:30 LDL Cholesterol, Calc 132.4 mg/dL (<100) H 11/11/25 15:30 HDL Cholesterol 39 mg/dL (>or=50) L 11/11/25 15:30 TSH 4.70 uIU/mL (0.55-4.78) 11/12/25 06:12 Urine Color Yellow (Yellow) 11/11/25 14:26 Urine Clarity Clear (Clear) 11/11/25 14:26 Urine pH 5.5 (5-8) 11/11/25 14:26 Ur Specific Zullinger 1.010 (1.005-1.025) 11/11/25 14:26 Urine Protein Negative mg/dL (Neg-Trace) 11/11/25 14:26 Urine Ketones Negative mg/dL (Negative) 11/11/25 14:26 Urine Blood Negative (Negative) 11/11/25 14:26 Urine Nitrite Negative (Negative) 11/11/25 14:26 Urine Bilirubin Negative (Negative) 11/11/25 14:26 Urine Urobilinogen 0.2 mg/dL (Up to 0.2) 11/11/25 14:26 Ur Leukocyte Esterase Negative (Negative) 11/11/25 14:26 Urine Glucose Negative mg/dL (Negative) 11/11/25 14:26 COVID-19 Source Nasopharynx 11/11/25 14:40 SARS-CoV-2 (PCR) Negative (Negative) 11/11/25 14:40 Influenza Type A (PCR) Negative (Negative) 11/11/25 14:40 Influenza Type B (PCR) Negative (Negative) 11/11/25 14:40 RSV (PCR) Negative (Negative) 11/11/25 14:40 Additional Comments Additional comments: --------- APPROVED REPORT EXAM: Comprehensive 2D, Doppler, and color-flow Echocardiogram Patient Location: ER Room/Bed: 5 Baker: Sienna Baer RDCS (AE) Indications: TIA Other Information Study Quality: Fair. Technically limited study due to body habitus, exam done bedside ER. Conclusion Normal left ventricular wall thickness and chamber size. EF is 60%. Wall motion is normal Normal right ventricular size and function Both atria are normal in size Trileaflet aortic valve with mild regurgitation Mild mitral annular calcification Ascending aorta is mildly dilated measuring 3.5 cm Wall motion Left Ventricle Technically limited imaging. The left ventricular systolic function is normal. The left ventricular ejection fraction is within the normal range. There is normal LV segmental wall motion. There is no ventricular septal defect visualized. LVEF is 60%. Right Ventricle Right ventricle is grossly normal in size. Right ventricular systolic function is grossly normal. Atria The left atrium size is normal. The right atrium size is normal. The interatrial septum is intact with no evidence for an atrial septal defect. Aortic Valve The aortic valve is normal in structure. Aortic valve is trileaflet. There is no aortic valvular stenosis. Mild aortic regurgitation. Mitral Valve Mild mitral annular calcification. No evidence of mitral valve stenosis. Trace mitral regurgitation. Tricuspid Valve The tricuspid valve is normal in structure. There is no tricuspid valve stenosis. Trace tricuspid regurgitation. Unable to assess PA pressure. Pulmonic Valve The pulmonary valve is normal in structure. There is no pulmonic valvular stenosis. Trace pulmonic regurgitation. Great Vessels The aortic root is normal in size. The ascending aorta is mildly dilated. Aortic arch is not well visualized. IVC is normal in size and collapses >50% with inspiration. Pericardium There is no pericardial effusion. PFSH All Active Problems (Updated 11/12/25 @ 13:25 by Dia Villafana) Sinusitis (Acute) CVA (cerebral vascular accident) (Chronic) Acute infarct in the posteromedial left occipital lobe. GERD (gastroesophageal reflux disease) (Chronic) HTN (hypertension) (Chronic) Migraine headache (Chronic) Sudden onset unilateral headache (Acute) Elevated troponin (Acute) TIA (transient ischemic attack) (Acute) Social History Smoking/Tobacco Use Status: Current every day Tobacco Type: cigarettes Years smoked: 35 Smoking risk assessment performed?: Yes Alcohol Intake: never Drug use: Never Substance use type: does not use Do you feel safe at home: Yes Do you feel safe in your relationship?: Yes Time Spent with Patient Time Spent with Patient: <45 minutes Time was spent: preparing to see the patient(eg.review tests), obtaining and/or reviewing separately otained hiistory, ordering medications,tests, procedures, referring, communicating with other health child daycare worker, indepentently interpreting results, counseling the patient and care coordination
== END 2025-11-12 14:18 | disposition home or self-care (01) ==
LOC: ER 17:07 → EDHOLD 18:58
PROVIDERS: Nurse Practitioner Family; Registered Nurse Emergency; Admitting Provider Family Medicine; Emergency Provider Family Medicine; PCP Family Medicine; Responsible Provider Family Medicine; Visit Provider Family Medicine
DX: I63.89 Other cerebral infarction (principal); G43.809 Other migraine, not intractable, without status migrainosus; I10 Essential (primary) hypertension; K21.9 Gastro-esophageal reflux disease without esophagitis; J32.9 Chronic sinusitis, unspecified; E11.9 Type 2 diabetes mellitus without complications; Z79.84 Long term (current) use of oral hypoglycemic drugs; R74.8 Abnormal levels of other serum enzymes; Z79.899 Other long term (current) drug therapy; F17.210 Nicotine dependence, cigarettes, uncomplicated; R29.810 Facial weakness; G81.92 Hemiplegia, unspecified affecting left dominant side; H53.8 Other visual disturbances; I45.10 Unspecified right bundle-branch block
CPT/HCPCS: 00123; 36415; 36416; 70496; 70498; 80053; 80061; 82962; 85652; 87637; 93005; 96361; 96374; 96375; 99285; J1650; 70450; 70551; 71045; 81003; 83735; 84443; 84484; 85025; 93010; 93306; 99223; 99239; G0378; J0780; J1200; J1815; J1885; J3490; J7512